=== PATIENT | female | born 1960 | race Caucasian/White ===

== ENCOUNTER 2017-02-26 17:49 | Inpatient (IN) | payer MEDICAID ==
[~2017-02-26] VITALS: Ht 144.8 cm; Wt 57.7 kg
[~2017-02-26 17:49] MED LIST: BEN25 PO; LEVO500T10 PO; NAPR-688 PO
[2017-02-26] MEDS ORDERED: KETOROLAC 60 MG INJ ONE (21:04)
[2017-02-26] MEDS ORDERED: ONDANSETRON 4 MG INJ IV STA (21:42)
[2017-02-26] MEDS ORDERED: morphine 10 MG INJ IV ONE (22:00)
--- NOTE | 2017-02-27 00:36 | RADRPT ---
PROCEDURE: Left femur. CLINICAL INDICATION: Pain. TECHNIQUE: 4 views of the left femur were performed. COMPARISON: None. FINDINGS: There are comminuted fractures of the distal femoral metadiaphysis with moderate impaction and dorsa l offset. There is no dislocation. The joint spaces are within normal limits. Bone mineralization is decrease. There is no radiopaque foreign body or abnormal calcification. IMPRESSION: Comminuted fractures of the distal femur. Osteopenia. .John Angulo MD, MD Date Time Electronically viewed and signed by .John Angulo MD, on 02/27/2017 00:36 .T/
--- NOTE | 2017-02-27 00:37 | RADRPT ---
PROCEDURE: Left hip. CLINICAL INDICATION: Pain. TECHNIQUE: Two views of the left hip were obtained. COMPARISON: None. FINDINGS: There is no fracture, dislocation or bone destruction. The joint spaces are within normal limits. Bone mineralization is decreased. There is no radiopaque foreign body or abnormal calcification. IMPRESSION: No evidence of fracture. Osteopenia. .John Angulo MD, MD Date Time Electronically viewed and signed by .John Angulo MD, on 02/27/2017 00:36 .T/
--- NOTE | 2017-02-27 00:37 | RADRPT ---
PROCEDURE: Left knee. CLINICAL INDICATION: Pain. TECHNIQUE: Three views including AP, lateral and oblique views of the left knee were obtained. T he images reviewed on a PACS workstation. COMPARISON: None. FINDINGS: There are comminuted fractures of the distal femoral metadiaphysis with moderate impaction and mild dorsal offset. There is no dislocation. There is no significant joint space narrowing. There is a small joint effusion. Bone mineralization is decrease. There is no radiopaque foreign body or abn ormal calcification. IMPRESSION: Comminuted fractures of the distal femur. Osteopenia. .John Angulo MD, Date Time Electronically viewed and signed by .John Angulo MD, MD on 02/27/2017 00:37 .T/
--- NOTE | 2017-02-27 00:44 | RADRPT ---
PROCEDURE: X-ray left tibia and fibula CLINICAL INDICATION: Fall. TECHNIQUE: 5 views of the left tibia and fibula. COMPARISON: None FINDINGS: Demineralization limits evaluation of fine osseous detail. Comminuted impacted fracture of the dist al left femoral metaphysis. Density over the lateral aspect of the distal left fibular metaphysis ma y represent overlying soft tissue fold versus small external to the patient. Recommend left ankle s eries for further evaluation. Otherwise, the left tibia and fibula are without acute fracture or di slocation. IMPRESSION: 1. Comminuted impacted fracture of the distal left femoral metaphysis. 2. Possible osseous abnormality at the lateral aspect of the distal left fibular metaphysis, subopt imally visualized. 3. Recommend left ankle series for further evaluation. 4. Otherwise, the left tibia and fibula are without acute fracture or dislocation. RPTAT: [facility] Physician Dang Date Time Electronically viewed and signed by Physician Dang on 02/27/2017 00:43 RS/
[2017-02-27 00:50] VITALS: TEMP 97.8
--- NOTE | 2017-02-27 01:22 | ERA ---
ER Documentation Chief Complaint Date/Time DATE: 02/27/17 TIME: 01:19 Chief Complaint Fall HPI This is a 57-year-old female presents to the ER after she fell onto her left extremity while coming back from the grocery store. Patient has a past medical history of polio and has a weak left leg. Patient was brought in with her family for severe lower extremity pain. Patient states that it is most painful around her knee. She denies any numbness or tingling of her leg. She did not hit her head. She denies any loss of consciousness. She does not have any nausea or vomiting. She denies any upper extremity pain. ROS 12 point review of systems was done, all negative except per HPI. Medications Home Meds Active Scripts Naproxen* (Naproxen*) 500 Mg Tablet, 500 MG PO BID Y for PAIN, #20 TAB Prov:MEGAN PARKSHUA DO 09/29/15 Levofloxacin* (Levofloxacin*) 500 Mg Tablet, 500 MG PO DAILY, #7 TAB Prov:GIAN PARK DO 09/29/15 Reported Medications Diphenhydramine Hcl* (Benadryl*) 25 Mg Cap, 25 MG PO Q6H Y for ALLERGIC REACTION , CAP 09/29/15 Allergies Allergies: Coded Allergies: No Known Allergy (Unverified , 09/29/15) PMhx/Soc History of Surgery: No Anesthesia Reaction: No Hx Neurological Disorder: No Hx Respiratory Disorders: No Hx Cardiac Disorders: No Hx Psychiatric Problems: No Hx Miscellaneous Medical Probl: No Hx Alcohol Use: No Hx Substance Use: No Hx Tobacco Use: No Physical Exam Vitals Vital Signs Date Time Temp Pulse Resp B/P Pulse Ox O2 Delivery O2 Flow Rate FiO2 02/27/17 00:50 97.8 80 16 112/68 96 Room Air Physical Exam GENERAL: Patient is in distress secondary to pain. HEENT: Atraumatic. CHEST: Clear to auscultation bilaterally. There are no rales, wheezes or rhonchi. HEART: Regular rate and rhythm. No murmurs, clicks, rubs or gallops. EXTREMITIES: Very difficult exam secondary to pain. Patient is unable to ambulate and is in a wheelchair. Extremely tender to palpation to the distal femur and knee. Unable to move knee. Unable to assess for hip range of motion. Tender to palpation throughout entire tibia and fibula. +2 pulses. Normal capillary refill. Incisions are intact. L4 L5-S1 are intact. NEURO: Alert and oriented. Cranial nerves II through XII are intact. SKIN: There is no apparent rash or petechia. The skin is warm and dry. Results 24 hrs Current Medications Medications (Trade) Dose Ordered Sig/Renetta Route PRN Reason Start Time Stop Time Status Last Admin Dose Admin Ketorolac Tromethamine (Toradol) 60 mg STK-MED ONCE .ROUTE 02/26/17 21:04 02/26/17 21:05 DC Morphine Sulfate (morphine) 6 mg ONCE ONCE IV 02/26/17 22:00 02/26/17 22:01 DC 02/26/17 22:01 Ondansetron HCl (Zofran Inj) 4 mg ONCE STAT IV 02/26/17 21:42 02/26/17 21:45 DC 02/26/17 22:01 Procedures/MDM This is a 57-year-old female presents to the ER after a fall. Patient does have a fracture of the femur. Patient is unstable to go home at this time as she is unable to ambulate. Dr. Cook orthopedic doctor on-call was consulted and he will be following patient. Patient will be admitted into the hospital for further management and care. Departure Diagnosis: Primary Impression: Femur fracture, left Condition: AKSHAT Tejada Feb 27, 2017 01:22
[2017-02-27 02:05] LABS: ADD SCAN DIFF NO
[2017-02-27 02:07] LABS: BASOPHILS % 0.6 % (0.0-2.0); EOSINOPHILS % 0.1 % (0.0-7.0); HEMATOCRIT 29.8 % (37.0-47.0); HEMOGLOBIN 10.3 g/dl (12.0-16.0); LYMPHOCYTES # 1.6 10^3/ul (0.8-2.9); LYMPHOCYTES % 23.4 % (15.0-51.0); MEAN CORPUSCULAR HEMOGLOBIN 33.8 pg (29.0-33.0); MEAN CORPUSCULAR HGB CONC 34.6 g/dl (32.0-37.0); MEAN CORPUSCULAR VOLUME 97.7 fl (82.0-101.0); MEAN PLATELET VOLUME 8.3 fl (7.4-10.4); MONOCYTE # 0.5 10^3/ul (0.3-0.9); MONOCYTES % 7.1 % (0.0-11.0); NEUTROPHIL # 4.6 10^3/ul (1.6-7.5); NEUTROPHILS % 68.4 % (39.0-77.0); PLATELET COUNT 233 10^3/UL (140-415); RED BLOOD COUNT 3.05 10^6/ul (4.20-5.40); RED CELL DISTRIBUTION WIDTH 13.2 % (11.5-14.5); WHITE BLOOD COUNT 6.8 10^3/ul (4.8-10.8)
--- NOTE | 2017-02-27 02:12 | RADRPT ---
PROCEDURE: Left ankle. CLINICAL INDICATION: Pain. TECHNIQUE: Three views including AP, lateral and oblique views of the left ankle were performed. COMPARISON: None. FINDINGS: There is no fracture, dislocation or bone destruction. The ankle mortise is within normal limits. Bone mineralization is decreased. There is no radiopaque foreign body or abnormal calcification. IMPRESSION: No evidence of fracture. Osteopenia. .John Angulo MD, MD Date Time Electronically viewed and signed by .John Angulo MD, on 02/27/2017 02:12 .T/
--- NOTE | 2017-02-27 02:13 | RADRPT ---
PROCEDURE: Chest. CLINICAL INDICATION: Chest pain. TECHNIQUE: Single frontal view of the chest was obtained. COMPARISON: 09/29/2015. FINDINGS: The cardiac silhouette is magnified. The aortic arch is unremarkable. There is no focal consolidat ion, vascular congestion or pleural effusion. There is no pneumothorax. IMPRESSION: No evidence for active cardiopulmonary disease. .John Angulo MD, MD Date Time Electronically viewed and signed by .John Angulo MD, on 02/27/2017 02:13 .T/
[2017-02-27 02:21] LABS: INR 0.92; PROTIME 12.4 Sec (12.2-14.2)
[2017-02-27 02:22] LABS: PARTIAL THROMBOPLASTIN TIME 33.2 Sec (25.0-35.0)
--- NOTE | 2017-02-27 02:38 | RADRPT ---
PROCEDURE: CT left femur. CLINICAL INDICATION: Fracture of the distal left femur. TECHNIQUE: Noncontrast CT examination of the left femur, with axial, sagittal and coronal reformat earnestine images. CTDI: 18.47 and DLP: 943.13. COMPARISON: Left knee series dated 02/26/2017. FINDINGS: Comminuted fracture of the distal metaphysis of the left femur, with about 26 mm posterior subluxati on of the distal comminuted fracture fragments and about 19 mm superior subluxation of the distal fr agment. There is a mild 3 cm overriding of the distal fragment at the lateral distal humeral diaphys is. Comminution is greater at the lateral distal fragment. The fracture is apex anterior. There is a nondisplaced intercondylar fracture component. The remaining proximal and mid left femur are without acute fracture. No evident fractures in the articular femoral condyles. No evident fracture of the patella, the proximal tibia or the proximal fibula. No significant hemarthrosis. Scattered inflammatory changes likely secondary to hemorrhage in the p osterior compartment of the distal left thigh. IMPRESSION: Comminuted overriding and angulated fracture of the distal metaphysis of the left femur. RPTAT: [facility] Physician Dang Date Time Electronically viewed and signed by Physician Dang on 02/27/2017 02:38 RS/
[2017-02-27 02:50] LABS: ALBUMIN 4.6 g/dl (3.3-4.9); ALBUMIN/GLOBULIN RATIO 1.84; BILIRUBIN,INDIRECT 0.1 mg/dl (0-1.1); BILIRUBIN,TOTAL 0.1 mg/dl (0.2-1.3); CALCIUM 8.5 mg/dl (8.4-10.2); CREATININE 0.55 mg/dl (0.44-1.00); POTASSIUM 3.7 mmol/L (3.5-5.1); TOTAL PROTEIN 7.1 g/dl (6.1-8.1)
[2017-02-27] MEDS ORDERED: ONDANSETRON 4 MG INJ IV STA (03:14)
[2017-02-27] MEDS ORDERED: HYDROmorphONE 1 MG/ML SYG IV STA (03:14)
[2017-02-27] MEDS ORDERED: ACETAMINOPHEN 325 MG TAB PO PRN (03:30)
[2017-02-27] MEDS ORDERED: ONDANSETRON 4 MG INJ IV PRN (03:30)
[2017-02-27 04:06] VITALS: BP 110/68; PULSE 78; RESP 16; Ht 144.8 cm; Wt 57.7 kg
[2017-02-27] MEDS ORDERED: HYDROmorphONE 1 MG/ML SYG IV PRN (05:00)
[2017-02-27] MEDS ORDERED: NACL 0.9% 3 ML SYG IV SCH (06:30)
[2017-02-27] MEDS ORDERED: BISACODYL (EC) 5 MG TAB PO PRN (06:30)
[2017-02-27] MEDS ORDERED: DOCUSATE SODIUM 100 MG CAP PO PRN (06:30)
[2017-02-27] MEDS: SOD CHLORIDE 0.9% 1,000 ML IV SCH ×2 (06:36→20:22)
[2017-02-27] MEDS: LORAZEPAM 2 MG INJ IV PRN ×2 (06:36→14:27)
[2017-02-27] MEDS: HYDROmorphONE 1 MG/ML SYG IV PRN ×5 (06:38→20:30)
--- NOTE | 2017-02-27 06:50 | HP ---
Date/Time of Note Date/Time of Note DATE: 02/27/17 TIME: 06:43 Assessment/Plan Lines/Catheters IV [facility]from [facility]): Saline Lock Urinary Cath still in place: No Assessment/Plan Chief Complaint/Hosp Course This is a 57 year female being admitted to the [facility] floor for: #1 left femur fracture: Multiple imaging studies were done please see imaging study results for further information. CT of the lower extremity shows Comminuted overriding and angulated fracture of the distal metaphysis of the left femur. At the current time will provide patient IV pain control medications. We will keep the patient n.p.o. Put patient on normal saline. Dr. Cook of orthopedic surgery was consulted by the ER. Will await further recommendations from orthopedic. Will put patient on bedrest. #2 alcohol abuse: Patient did smell of alcohol when she came in will order a ethyl alcohol level as well as a urine drug screen. At the current time will start patient on a banana bag. Ativan as needed agitation. Consider Librium depending on blood alcohol level level. #3 DVT and GI prophylaxis: Heparin subcu, Protonix Further treatment strategy will be implemented as per the clinical course. Problems: HPI/ROS Admit Date/Time Admit Date/Time Feb 27, 2017 at 03:10 Hx of Present Illness Chief complaint: Fall This is a 57-year-old female presents to the ER after she fell onto her left extremity while coming back from the grocery store. Patient has a past medical history of polio and has a weak left leg. Patient was brought in with her family for severe lower extremity pain. Patient states that it is most painful around her knee. She denies any numbness or tingling of her leg. She did not hit her head. She denies any loss of consciousness. She does not have any nausea or vomiting. She denies any upper extremity pain. Patient did state that she was drinking yesterday. She states she drinks about 2-3 beer cans a day. Allergies: NKDA Medications: See YAIMA BERNAL Const: As per HPI Eyes : No pain discharge or redness or change in visual acuity ENT: No pain, sore throat, congestion, congestion, dysphagia or discharge Respiratory: No shortness of breath, cough, sputum, wheezing, or pleuritic pain Cardiovascular: No chest pain, palpitation, PND, or edema GI : no change in appetite, abdominal pain, nausea, vomiting, diarrhea, constipation, or change in the color his stool Genitourinary: No dysuria, hematuria, flank pain , discharge or CVA tenderness Musculoskeletal: As per HPI Skin: No rash, bruising or hives Neuro: No headache, dizziness, syncope, seizure, focal weakness Endocrine: No polyuria, polydipsia, temperature intolerance Psych: No hallucination, depression, anxiety or suicidal ideation PMH/Family/Social Past Medical History Polio, left leg shorter than the right Past Surgical History 1 Family History Significant Family History: no pertinent family hx (Half pack per day 30 years ) Social History Alcohol Use: heavy (2-3 beers daily) Smoking Status: Current every day smoker Exam/Review of Systems Vital Signs Vitals Vital Signs Date Time Temp Pulse Resp B/P Pulse Ox O2 Delivery O2 Flow Rate FiO2 02/27/17 04:06 98.2 78 16 110/68 96 Room Air Intake and Output 02/26/17 02/26/17 02/27/17 15:00 23:00 07:00 Intake Total 0 ml Balance 0 ml Exam Exam General: Patient is lying in bed in moderate distress from the pain, patient also was breath smells like alcohol. HEENT: Atraumatic, normocephalic. The pupils are equal, round and reactive. Extraocular motor are intact Neck: Supple with full range of motion. No rigidity or meningismus Chest: Nontender Lungs: Clear to auscultation bilaterally no crackles rales or wheezing Heart: Normal S1-S2, Regular rhythm and rate. No murmur, S3, or S4 Abdomen: Soft , nontender, nondistended , bowel sounds are present. No guarding no rebound tenderness , No masses or organomegaly. No costovertebral temporal angle mass Extremities: Tenderness to palpation over the left extremity from the mid thigh down to the knee, left lower extremity is shorter than the right. Neurologic: Normal mental status, speech normal, cranial nerves II through XII are intact, motor and sensory are intact, no focal weakness Additional Comments PROCEDURE: Left ankle. CLINICAL INDICATION: Pain. TECHNIQUE: Three views including AP, lateral and oblique views of the left ankle were performed. COMPARISON: None. FINDINGS: There is no fracture, dislocation or bone destruction. The ankle mortise is within normal limits. Bone mineralization is decreased. There is no radiopaque foreign body or abnormal calcification. IMPRESSION: No evidence of fracture. Osteopenia. .John Angulo MD, MD Date Time Electronically viewed and signed by .John Angulo MD, MD on 02/27/2017 02:12 PROCEDURE: CT left femur. CLINICAL INDICATION: Fracture of the distal left femur. TECHNIQUE: Noncontrast CT examination of the left femur, with axial, sagittal and coronal reformatted images. CTDI: 18.47 and DLP: 943.13. COMPARISON: Left knee series dated 02/26/2017. FINDINGS: Comminuted fracture of the distal metaphysis of the left femur, with about 26 mm posterior subluxation of the distal comminuted fracture fragments and about 19 mm superior subluxation of the distal fragment. There is a mild 3 cm overriding of the distal fragment at the lateral distal humeral diaphysis. Comminution is greater at the lateral distal fragment. The fracture is apex anterior. There is a nondisplaced intercondylar fracture component. The remaining proximal and mid left femur are without acute fracture. No evident fractures in the articular femoral condyles. No evident fracture of the patella, the proximal tibia or the proximal fibula. No significant hemarthrosis. Scattered inflammatory changes likely secondary to hemorrhage in the posterior compartment of the distal left thigh. IMPRESSION: Comminuted overriding and angulated fracture of the distal metaphysis of the left femur. PROCEDURE: Chest. CLINICAL INDICATION: Chest pain. TECHNIQUE: Single frontal view of the chest was obtained. COMPARISON: 09/29/2015. FINDINGS: The cardiac silhouette is magnified. The aortic arch is unremarkable. There is no focal consolidation, vascular congestion or pleural effusion. There is no pneumothorax. IMPRESSION: No evidence for active cardiopulmonary disease. .John Angulo MD, MD Date Time Electronically viewed and signed by .John Angulo MD, MD on 02/27/2017 02:13 PROCEDURE: X-ray left tibia and fibula CLINICAL INDICATION: Fall. TECHNIQUE: 5 views of the left tibia and fibula. COMPARISON: None FINDINGS: Demineralization limits evaluation of fine osseous detail. Comminuted impacted fracture of the distal left femoral metaphysis. Density over the lateral aspect of the distal left fibular metaphysis may represent overlying soft tissue fold versus small external to the patient. Recommend left ankle series for further evaluation. Otherwise, the left tibia and fibula are without acute fracture or dislocation. IMPRESSION: 1. Comminuted impacted fracture of the distal left femoral metaphysis. 2. Possible osseous abnormality at the lateral aspect of the distal left fibular metaphysis, suboptimally visualized. 3. Recommend left ankle series for further evaluation. 4. Otherwise, the left tibia and fibula are without acute fracture or dislocation. RPTAT: [facility] Physician Dang Date Time Electronically viewed and signed by Physician Dang on 02/27/2017 00:43 Labs Result Diagram: 02/27/17 0145 02/27/17 0145 Medications Medications Current Medications Hydromorphone HCl (Dilaudid) 1 mg Q3 PRN IV PAIN; Start 02/27/17 at 09:00 Hydromorphone HCl 0.5 mg 0.5 mg Q3 PRN IV PAIN Last administered on 02/27/17 06:38; Admin Dose 0.5 MG; Start 02/27/17 at 06:30 Sodium Chloride (NS) 1,000 ml @ 60 mls/hr [id number] IV Last administered on 02/27 06:36; Admin Dose 60 MLS/HR; Start 02/27/17 at 06:11 Docusate Sodium (Colace) 100 mg Q12H PRN PO CONSTIPATION; Start 02/27/17 at 06: 30 Bisacodyl (Dulcolax) 5 mg DAILY PRN PO CONSTIPATION; Start 02/27/17 at 06:30 Pantoprazole 40 mg 40 mg DAILY@06 PO ; Start 02/28/17 at 06:00 Multivitamins/ Thiamine HCl/ Folic Acid/Sodium Chloride (Mvi Adult/ Vitamin B1/ Folic Acid/NS) 1,011.2 ml @ 125 mls/ hr DAILY@09 IVPB ; Start 02/27/17 at 09:00 Lorazepam (Ativan) 1 mg Q6H PRN IV AGITATION/ANXIETY Last administered on t 06:36; Admin Dose 1 MG; Start 02/27/17 at 06:30 EMILY BERMUDEZ Feb 27, 2017 06:50
[2017-02-27] MEDS ORDERED: HEPARIN 5,000 UNIT/0.5 ML VIAL SC SCH (07:00)
[2017-02-27 08:25] VITALS: BP 130/61; RESP 18
[2017-02-27 09:12] LABS: INR 0.91; PARTIAL THROMBOPLASTIN TIME 33.2 Sec (25.0-35.0); PROTIME 12.3 Sec (12.2-14.2)
[2017-02-27] MEDS: MULTIVITAMINS 10 ML, THIAMINE 100 MG, FOLIC ACID 1 MG in SOD CHLORIDE 0.9% 1,000 ML IVPB SCH (09:45)
[2017-02-27 10:28] LABS: ADD SCAN DIFF NO
[2017-02-27 10:29] LABS: BASOPHILS % 0.5 % (0.0-2.0); EOSINOPHILS % 0.5 % (0.0-7.0); HEMATOCRIT 28.6 % (37.0-47.0); HEMOGLOBIN 10.1 g/dl (12.0-16.0); LYMPHOCYTES # 1.4 10^3/ul (0.8-2.9); LYMPHOCYTES % 19.4 % (15.0-51.0); MEAN CORPUSCULAR HEMOGLOBIN 35.4 pg (29.0-33.0); MEAN CORPUSCULAR HGB CONC 35.3 g/dl (32.0-37.0); MEAN CORPUSCULAR VOLUME 100.4 fl (82.0-101.0); MEAN PLATELET VOLUME 8.6 fl (7.4-10.4); MONOCYTE # 0.8 10^3/ul (0.3-0.9); MONOCYTES % 10.2 % (0.0-11.0); NEUTROPHIL # 5.1 10^3/ul (1.6-7.5); PLATELET COUNT 268 10^3/UL (140-415); RED BLOOD COUNT 2.85 10^6/ul (4.20-5.40); RED CELL DISTRIBUTION WIDTH 13.2 % (11.5-14.5); WHITE BLOOD COUNT 7.3 10^3/ul (4.8-10.8)
[2017-02-27 12:01] LABS: BARBITURATES Negative (NEGATIVE); BENZODIAZEPINES Negative (NEGATIVE); CANNABINOIDS Negative (NEGATIVE); COCAINE Negative (NEGATIVE); OPIATES Positive (NEGATIVE)
[2017-02-27 13:42] LABS: ALANINE AMINOTRANSFERASE 59 IU/L (13-69); ALBUMIN 4.6 g/dl (3.3-4.9); ALBUMIN/GLOBULIN RATIO 1.58; ALKALINE PHOSPHATASE 84 IU/L (42-121); ANION GAP 16 (8-16); ASPARTATE AMINO TRANSFERASE 77 IU/L (15-46); BILIRUBIN,INDIRECT 0.7 mg/dl (0-1.1); BILIRUBIN,TOTAL 0.7 mg/dl (0.2-1.3); BLOOD UREA NITROGEN 9 mg/dl (7-20); CARBON DIOXIDE 25 mmol/L (21-31); CHLORIDE 99 mmol/L (97-110); CREATINE KINASE 126 IU/L (23-200); CREATININE 0.53 mg/dl (0.44-1.00); GLUCOSE 83 mg/dl (70-220); IRON 109 ug/dl (35-150); MAGNESIUM 1.9 mg/dl (1.7-2.5); PHOSPHORUS 3.9 mg/dl (2.5-4.9); POTASSIUM 4.7 mmol/L (3.5-5.1); SODIUM 135 mmol/L (135-144); TOTAL PROTEIN 7.5 g/dl (6.1-8.1)
--- NOTE | 2017-02-27 13:47 | CONS ---
DATE OF ADMISSION: 02/27/2017 DATE OF CONSULTATION: 02/27/2017 TYPE OF CONSULTATION: Orthopedic surgical. HISTORY OF PRESENT ILLNESS: The patient is a 57-year-old female with known involvement of the left lower extremity from poliomyelitis who was admitted on 02/27/2017 when she came to the emergency [facility] complaining of painful swelling and deformity involving the left knee. According to the patient, she used to be ambulatory without any assistive device, and on 02/26/2017, she was walking with a gr ocery bag on both hands when she stepped in a pothole and fell, twisting her left lower extremity. She is known to drink on a daily basis. PHYSICAL EXAMINATION: My examination revealed a 57-year-old female who is alert and oriented. She is not in any acute distress. There is tenderness and swelling involving the distal portion of the left thigh which she is smaller than the right because of the preexisting polio. Range of motion of the left knee could not be tested properly because of the pain. Other than preexisting polio, she is denying any further neurovascular condition changes. X-rays of the left femur revealed a severely comminuted and displaced fracture involving the supraco ndylar area of the left femur. The fracture is comminuted, and there is a possible involvement of t he distal articular surface. DIAGNOSTIC IMPRESSION: 1. Supracondylar fracture of the left femur at the left knee, displaced and comminuted. 2. Known poliomyelitis with the atrophy of the left lower extremity. TREATMENT PLAN: To carry out the open reduction and internal fixation, probably utilizing plate and screws as soon as she can be medically cleared for surgery. Dictated By: LAYNE BAL/BEATA Conf#: [id number] DID#: [id number]
[2017-02-27 13:51] LABS: TOTAL IRON BINDING CAPACITY 267 ug/dl (241-421)
[2017-02-27 13:54] LABS: CK-MB 1.63 ng/ml (0.0-2.4)
[2017-02-27 13:57] LABS: TROPONIN-I < 0.012 ng/ml (0.00-0.12)
[2017-02-27] MEDS: NICOTINE (14 MG/24 HR) PATCH TRANSDERM SCH (15:00)
[2017-02-27 19:30] VITALS: BP 150/72; RESP 20
[2017-02-27] MEDS: HEPARIN 5,000 UNIT/0.5 ML VIAL SC SCH (20:25)
[2017-02-28] MEDS: LORAZEPAM 2 MG INJ IV PRN ×2 (00:52→14:03)
[2017-02-28 05:09] LABS: ADD SCAN DIFF NO
[2017-02-28 05:24] LABS: BASOPHILS % 0.5 % (0.0-2.0); EOSINOPHILS # 0.1 10^3/ul (0.0-0.5); EOSINOPHILS % 1.5 % (0.0-7.0); HEMATOCRIT 27.3 % (37.0-47.0); HEMOGLOBIN 9.3 g/dl (12.0-16.0); LYMPHOCYTES # 1.4 10^3/ul (0.8-2.9); LYMPHOCYTES % 21.3 % (15.0-51.0); MEAN CORPUSCULAR HEMOGLOBIN 33.9 pg (29.0-33.0); MEAN CORPUSCULAR HGB CONC 34.1 g/dl (32.0-37.0); MEAN CORPUSCULAR VOLUME 99.6 fl (82.0-101.0); MEAN PLATELET VOLUME 8.7 fl (7.4-10.4); MONOCYTE # 0.8 10^3/ul (0.3-0.9); MONOCYTES % 11.5 % (0.0-11.0); NEUTROPHIL # 4.2 10^3/ul (1.6-7.5); NEUTROPHILS % 64.6 % (39.0-77.0); PLATELET COUNT 270 10^3/UL (140-415); RED BLOOD COUNT 2.74 10^6/ul (4.20-5.40); RED CELL DISTRIBUTION WIDTH 13.2 % (11.5-14.5); WHITE BLOOD COUNT 6.5 10^3/ul (4.8-10.8)
[2017-02-28 05:38] LABS: CHOL/HDL RATIO 2.7 RATIO; MAGNESIUM 1.7 mg/dl (1.7-2.5)
[2017-02-28 05:53] LABS: ALBUMIN 4.3 g/dl (3.3-4.9); ALBUMIN/GLOBULIN RATIO 1.59; BILIRUBIN,INDIRECT 0.5 mg/dl (0-1.1); BILIRUBIN,TOTAL 0.5 mg/dl (0.2-1.3); CALCIUM 8.9 mg/dl (8.4-10.2); CREATININE 0.41 mg/dl (0.44-1.00); POTASSIUM 3.9 mmol/L (3.5-5.1)
[2017-02-28] MEDS: PANTOPRAZOLE (EC) 40 MG TAB PO SCH (06:07)
[2017-02-28] MEDS: HYDROmorphONE 1 MG/ML SYG IV PRN ×3 (06:07→18:26)
[2017-02-28] MEDS: MULTIVITAMINS 10 ML, THIAMINE 100 MG, FOLIC ACID 1 MG in SOD CHLORIDE 0.9% 1,000 ML IVPB SCH (08:17)
[2017-02-28] MEDS: HEPARIN 5,000 UNIT/0.5 ML VIAL SC SCH (08:25)
[2017-02-28] MEDS: NICOTINE (14 MG/24 HR) PATCH TRANSDERM SCH (08:25)
[2017-02-28 08:42] VITALS: BP 140/70; RESP 18
[2017-02-28 09:09] LABS: ADD UMIC YES; UR BILIRUBIN (Dip) NEGATIVE (NEGATIVE); UR BLOOD (Dip) 1+ (NEGATIVE); UR CLARITY CLEAR (CLEAR); UR COLOR LT. YELLOW (YELLOW); UR GLUCOSE (Dip) NEGATIVE (NEGATIVE); UR KETONES (Dip) TRACE (NEGATIVE); UR LEUKOCYTE ESTERASE (Dip) NEGATIVE (NEGATIVE); UR NITRITE (Dip) NEGATIVE (NEGATIVE); UR TOTAL PROTEIN (Dip) TRACE (NEGATIVE); UR UROBILINOGEN (Dip) 0.2 E.U./dL (0.1-1.0)
[2017-02-28 09:20] LABS: UR BACTERIA FEW; UR SQUAMOUS EPITHELIAL CELL FEW
--- NOTE | 2017-02-28 09:55 | PN ---
DATE: 02/28/2017 TIME OF EVALUATION: 9:15 a.m. SUBJECTIVE DATA: Complains of left hip pain. OBJECTIVE DATA: VITAL SIGNS: Temperature 98.3, pulse rate 91, respiratory rate 18, blood pressure 140/70, oxygen saturation 94% on room air. GENERAL: This is a 57-year-old female patient lying in bed in no apparent distress. HEENT: Head normocephalic and atraumatic. Eyes: Anicteric sclerae. Conjunctivae clear. ENT: Nasal septum is midline. Oral mucosa is moist. NECK: Supple. No JVD noticed. RESPIRATORY: Bilaterally clear to auscultation. No adventitious breath sounds heard. No use of accessory muscles of respiration. CARDIAC: Regular rate and rhythm. S1 and S2 heard. ABDOMEN: Soft, nontender and nondistended. Bowel sounds positive in all 4 quadrants. GENITOURINARY: Deferred. EXTREMITIES: No cyanosis, no clubbing. Left lower extremity shorter than right. Left hip tenderness. No pedal edema. Peripheral pulses palpable. NEUROLOGIC: The patient is awake, alert and oriented. Cranial nerves are grossly intact. LABORATORY AND DIAGNOSTIC DATA: WBC 6.5, hemoglobin 9.3, hematocrit 27.3, platelet count 270. Sodium 131, potassium 3.9, chloride 98, carbon dioxide 20, anion gap 12, BUN 6, creatinine 0.41, glucose 70, calcium 8.9, phosphorus 3.0, magnesium 1.7. ASSESSMENT AND PLAN: 1. Comminuted overriding and angulated fracture of the distal metaphysis of the left femur. This is secondary to mechanical fall. The patient needs open reduction and internal fixation. The patient will be provided with adequate pain control. Orthopedic surgery is on the case. 2. Anemia. Most probably anemia of chronic disease. No evidence of any iron deficiency. The patient's H and H will be monitored closely. 3. Dyslipidemia. Elevated total cholesterol. Low cholesterol diet will be advised. 4. Vitamin D deficiency. The patient will be started on vitamin D supplements. 5. Poliomyelitis as a child with chronic left lower extremity weakness. The patient will be provided with supportive care. 6. Nicotine use. The patient currently on nicotine patch. Cessation will be advised. 7. Alcohol abuse. The patient denied using any hard liquor. The patient's urine drug screen has been negative. The patient on p.r.n. Ativan for any acute alcohol withdrawal delirium. The patient on daily banana bag. 8. Fluid, electrolytes and nutrition. Low cholesterol diet. 9. Deep vein thrombosis prophylaxis. Subcutaneous heparin. 10. Gastrointestinal prophylaxis. Proton pump inhibitors. PLAN: 1. Await orthopedic surgery evaluation. Continue pain control. Perioperative risk stratification. The patient is a 57-year-old female with no significant past medical history other than poliomyelitis as a child. The patient has no known coronary artery disease. The patient has no essential hypertension or diabetes. The patient has minimal dyslipidemia. The patient has no significant comorbidities other than minimal dyslipidemia and history of alcohol abuse. Given these comorbidities, the patient is at mild to moderate risk for any orthopedic surgery for management of her left hip fracture. Nevertheless, the benefits of the procedure would outweigh the risks from the procedure and the patient is cleared for surgery. The case was discussed with Dr. Crabtree. TORRIE CRABTREE MD, AM/BEATA Conf#: [id number] DID#: [id number] JABIER
[2017-02-28] MEDS: CHOLECALCIFEROL 2,000 UNIT CAP PO SCH (10:00)
[2017-02-28] MEDS ORDERED: LORAZEPAM 1 MG TAB PO PRN (16:30)
[2017-02-28] MEDS: SOD CHLORIDE 0.9% 1,000 ML IV SCH (16:32)
[2017-02-28 19:22] VITALS: BP 151/77; RESP 18
[2017-03-01] VITALS (19 sets, daily range): BP systolic 110–162; BP diastolic 55–82; PULSE 72–124; RESP 13–30
[2017-03-01] MEDS: PANTOPRAZOLE (EC) 40 MG TAB PO SCH (03:45)
[2017-03-01] MEDS: HYDROmorphONE 1 MG/ML SYG IV PRN (04:51)
[2017-03-01 06:04] LABS: ADD SCAN DIFF NO; BASOPHILS % 0.4 % (0.0-2.0); EOSINOPHILS # 0.1 10^3/ul (0.0-0.5); EOSINOPHILS % 1.6 % (0.0-7.0); HEMATOCRIT 32.4 % (37.0-47.0); HEMOGLOBIN 11.4 g/dl (12.0-16.0); LYMPHOCYTES # 2.1 10^3/ul (0.8-2.9); LYMPHOCYTES % 28.1 % (15.0-51.0); MEAN CORPUSCULAR HEMOGLOBIN 33.8 pg (29.0-33.0); MEAN CORPUSCULAR HGB CONC 35.2 g/dl (32.0-37.0); MEAN CORPUSCULAR VOLUME 96.1 fl (82.0-101.0); MEAN PLATELET VOLUME 8.9 fl (7.4-10.4); MONOCYTE # 0.8 10^3/ul (0.3-0.9); MONOCYTES % 10.7 % (0.0-11.0); NEUTROPHIL # 4.4 10^3/ul (1.6-7.5); NEUTROPHILS % 58.9 % (39.0-77.0); PLATELET COUNT 284 10^3/UL (140-415); RED BLOOD COUNT 3.37 10^6/ul (4.20-5.40); RED CELL DISTRIBUTION WIDTH 13.6 % (11.5-14.5); WHITE BLOOD COUNT 7.4 10^3/ul (4.8-10.8)
[2017-03-01 06:14] LABS: INR 0.88; PROTIME 11.9 Sec (12.2-14.2); PT RATIO 0.9
[2017-03-01 06:15] LABS: PARTIAL THROMBOPLASTIN TIME 34.8 Sec (25.0-35.0)
[2017-03-01 06:18] LABS: MAGNESIUM 1.7 mg/dl (1.7-2.5); PHOSPHORUS 2.5 mg/dl (2.5-4.9)
[2017-03-01 06:28] LABS: CALCIUM 9.2 mg/dl (8.4-10.2); CREATININE 0.5 mg/dl (0.44-1.00); POTASSIUM 3.6 mmol/L (3.5-5.1)
[2017-03-01] MEDS: SOD CHLORIDE 0.9% 1,000 ML IV SCH ×2 (08:11→22:21)
[2017-03-01] MEDS: CHOLECALCIFEROL 2,000 UNIT CAP PO SCH (08:58)
[2017-03-01] MEDS: MULTIVITAMINS 10 ML, THIAMINE 100 MG, FOLIC ACID 1 MG in SOD CHLORIDE 0.9% 1,000 ML IVPB SCH (08:59)
[2017-03-01] MEDS: NICOTINE (14 MG/24 HR) PATCH TRANSDERM SCH (08:59)
[2017-03-01] MEDS ORDERED: MAGNESIUM SULFATE 2 GM/50 ML 50 ML IVPB ONE (13:00)
--- NOTE | 2017-03-01 13:56 | PN ---
Date/Time of Note Date/Time of Note DATE: 03/01/17 TIME: 13:52 Assessment/Plan VTE Prophylaxis VTE Prophylaxis Intervention: heparin Lines/Catheters IV C[facility] Type ([facility] Peripheral IV Urinary Cath still in place: No Assessment/Plan Assessment/Plan 1. Comminuted overriding and angulated fracture of the distal metaphysis of the left femur. This is secondary to mechanical fall. The patient needs open reduction and internal fixation. The patient will be provided with adequate pain control. surgery - today - medically cleared - mild/moderate risk 2. Anemia. Most probably anemia of chronic disease. No evidence of any iron deficiency. The patient's H and H will be monitored closely. transfuse at discretion of ortho 3. Dyslipidemia. Elevated total cholesterol. Low cholesterol diet will be advised. 4. Vitamin D deficiency. The patient will be started on vitamin D supplements. 5. Poliomyelitis as a child with chronic left lower extremity weakness. The patient will be provided with supportive care. 6. Nicotine use. The patient currently on nicotine patch. Cessation will be advised. 7. Alcohol abuse. denies any current use of ETOH - still on DT prevention - ativan/banana bag 8. Fluid, electrolytes and nutrition. npo for surgery 9. Deep vein thrombosis prophylaxis. Subcutaneous heparin. 10. Gastrointestinal prophylaxis. Proton pump inhibitors. PLAN: 1. Surgery today - patient is medically cleared - mild to moderate risk 2. f/u ortho recs as per clinical course. this progress note took greater than 40 minutes to complete Perioperative risk stratification. The patient is a 57-year-old female with no significant past medical history other than poliomyelitis as a child. The patient has no known coronary artery disease. The patient has no essential hypertension or diabetes. The patient has minimal dyslipidemia. The patient has no significant comorbidities other than minimal dyslipidemia and history of alcohol abuse. Given these comorbidities, the patient is at mild to moderate risk for any orthopedic surgery for management of her left hip fracture. Nevertheless, the benefits of the procedure would outweigh the risks from the procedure and the patient is cleared for surgery. Subjective 24 Hr Interval Summary Free Text/Dictation Patient had no overnight events. I spoke to her at length about the surgery and the risks/benefits of going along with this procedure. She agrees to continue with the procedure. I also spoke to her about the care plan. 20 minutes spent. Exam/Review of Systems Vital Signs Vitals Vital Signs Date Time Temp Pulse Resp B/P Pulse Ox O2 Delivery O2 Flow Rate FiO2 03/01/17 08:35 98.3 78 18 139/81 97 02/27/17 04:06 Room Air Intake and Output 02/28/17 02/28/17 03/01/17 15:00 23:00 07:00 Intake Total 2301.2 ml 150 ml Output Total 850 ml 1100 ml Balance 1451.2 ml -950 ml Exam Gen Iris: NAD, AAOx4 HEENT: NC/AT, PERRLA, EOMI, no pharyngeal erythema, no tonsillar exudates, no lymphadenopathy, no JVD, no carotid bruits NECK: supple, no thyromegaly THORAX: symmetrical, no obvious deformities CV: S1S2, RRR, no M/G/R Lungs: CTAB no W/C/R/R Abd: soft, NT/ND, +BS, no rebound, no guarding, neg HSM EXT: left leg truncated, externally rotated, increased edema around thigh area, right no edema, good distal pulses bilaterally Neuro: CN II-XII grossly intact, no focal deficits Psych: anxious Skin: C/D/I Results Result Diagram: 03/01/17 0455 03/01/17 0455 Results 24 hrs Laboratory Tests Test 03/01/17 04:00 03/01/17 04:55 03/01/17 06:30 Prothrombin Time 11.9 L Prothrombin Time Ratio 0.9 INR International Normalized Ratio 0.88 Activated Partial Thromboplast Time 34.8 White Blood Count 7.4 Red Blood Count 3.37 #L Hemoglobin 11.4 #L Hematocrit 32.4 L Mean Corpuscular Volume 96.1 Mean Corpuscular Hemoglobin 33.8 H Mean Corpuscular Hemoglobin Concent 35.2 Red Cell Distribution Width 13.6 Platelet Count 284 Mean Platelet Volume 8.9 Neutrophils % 58.9 Lymphocytes % 28.1 Monocytes % 10.7 Eosinophils % 1.6 Basophils % 0.4 Nucleated Red Blood Cells % 0.0 Neutrophils # 4.4 Lymphocytes # 2.1 Monocytes # 0.8 Eosinophils # 0.1 Basophils # 0.0 Nucleated Red Blood Cells # 0.0 Sodium Level 130 L Potassium Level 3.6 Chloride Level 94 L Carbon Dioxide Level 29 Anion Gap 11 Blood Urea Nitrogen 4 L Creatinine 0.50 Glucose Level 96 Calcium Level 9.2 Phosphorus Level 2.5 Magnesium Level 1.7 Lab Scanned Report BLOOD TRANSFUSION Medications Medications Current Medications Hydromorphone HCl (Dilaudid) 1 mg Q3 PRN IV PAIN Last administered on 04:51; Admin Dose 1 MG; Start 02/27/17 at 09:00 Hydromorphone HCl 0.5 mg 0.5 mg Q3 PRN IV PAIN Last administered on 02/27/17 20:30; Admin Dose 0.5 MG; Start 02/27/17 at 06:30 Sodium Chloride (NS) 1,000 ml @ 60 mls/hr [id number] IV Last administered on 02/28 16:32; Admin Dose 60 MLS/HR; Start 02/27/17 at 06:11 Docusate Sodium (Colace) 100 mg Q12H PRN PO CONSTIPATION; Start 02/27/17 at 06: 30 Bisacodyl (Dulcolax) 5 mg DAILY PRN PO CONSTIPATION; Start 02/27/17 at 06:30 Pantoprazole 40 mg 40 mg DAILY@06 PO Last administered on 02/28/17 06:07; Admin Dose 40 MG; Start 02/28/17 at 06:00 Multivitamins/ Thiamine HCl/ Folic Acid/Sodium Chloride (Mvi Adult/ Vitamin B1/ Folic Acid/NS) 1,011.2 ml @ 125 mls/ hr DAILY@09 IVPB Last administered on 08:59; Admin Dose 125 MLS/HR; Start 02/27/17 at 09:00 Heparin Sodium (Porcine) (Heparin (5000 Units/0.5 ml)) 5,000 unit Q12 SC Last administered on 02/28/17 08:25; Admin Dose 5,000 UNIT; Start 02/27/17 at 21:00 ; Status Future Hold Nicotine (Nicoderm 14 Mg/ 24hr) 1 patch DAILY TRANSDERM Last administered on 08:59; Admin Dose 1 PATCH; Start 02/27/17 at 15:00 Cholecalciferol (Vitamin D) 2,000 unit DAILY PO Last administered on 02/28/17 10:00; Admin Dose 2,000 UNIT; Start 02/28/17 at 09:30 Lorazepam 1 mg 1 mg Q6H PRN PO AGITATION/ANXIETY Last administered on 6/20/ 17at 01:15; Admin Dose 1 MG; Start 02/28/17 at 16:30 Magnesium Sulfate (Magnesium Sulfate 2 Gm/50 ml) 50 ml @ 25 mls/hr ONCE ONCE IVPB ; Start 03/01/17 at 13:00; Stop 03/01/17 at 14:59 JUDY AGEE MD Mar 01, 2017 13:56
--- NOTE | 2017-03-01 14:00 | RADRPT ---
Vent Rate: 78 bpm RR Interval: 0 msec SD Interval: 166 msec QRS Duration: 90 msec QT Interval: 390 msec QTC Interval: 444 msec P-R-T [place]: 73 - 75 - 78 degrees Normal sinus rhythm Nonspecific ST abnormality Abnormal ECG Electronically Signed By: Cleveland Thompson [id number]
[2017-03-01] MEDS ORDERED: POLYMYXIN/BACITRACIN 1L IRRIG ONE (17:31)
--- NOTE | 2017-03-01 17:34 | HPN ---
Date/Time of Note Date/Time of Note DATE: 03/01/17 TIME: 17:33 Interval H&P Admission Note Pt. seen H&P reviewed: No system changes RUBI LIANG MD Mar 01, 2017 17:34
[2017-03-01] MEDS ORDERED: FENTAnyl 50 MCG/ML VIAL ONE (17:46)
[2017-03-01] MEDS ORDERED: ONDANSETRON 4 MG INJ ONE (17:46)
[2017-03-01] MEDS ORDERED: morphine SULFATE/PF (10 MG/10 ML) INJ ONE (17:46)
[2017-03-01] MEDS ORDERED: CEFAZOLIN 1 GM INJ ONE (17:46)
[2017-03-01] MEDS ORDERED: NEOSTIGMINE 3 MG/3 ML SYRINGE ONE (17:46)
[2017-03-01] MEDS ORDERED: MIDAZOLAM 1 MG/ML 2 ML INJ ONE (17:46)
[2017-03-01] MEDS ORDERED: GLYCOPYRROLATE 0.4 MG INJ ONE (17:46)
[2017-03-01] MEDS ORDERED: ROCURONIUM 50 MG INJ ONE (17:46)
[2017-03-01] MEDS ORDERED: DEXAMETHASONE 4 MG/ML 1 ML INJ ONE (17:46)
[2017-03-01] MEDS ORDERED: PROPOFOL 20 ML ONE (17:46)
[2017-03-01] MEDS ORDERED: EPHEDrine SULFATE 50 MG/5 ML SYG IV PRN ×2 (19:00→21:00)
[2017-03-01] MEDS ORDERED: MEPERIDINE 25 MG INJ IV PRN ×2 (19:00→21:00)
[2017-03-01] MEDS ORDERED: FENTAnyl 50 MCG/ML VIAL IV PRN ×6 (19:00→21:00)
[2017-03-01] MEDS ORDERED: TRIMETHOBENZAMIDE 100 MG/ML VIAL IM PRN ×3 (19:00→21:00)
[2017-03-01] MEDS ORDERED: HYDROmorphONE (0.2 MG/ML) 10ML SYG IV PRN ×6 (19:00→21:00)
[2017-03-01] MEDS ORDERED: ONDANSETRON 4 MG INJ IV PRN ×3 (19:00→21:00)
[2017-03-01] MEDS ORDERED: MIDAZOLAM 1 MG/ML 2 ML INJ IV PRN ×2 (19:00→21:00)
[2017-03-01] MEDS ORDERED: LABETALOL HCL 20MG INJ IV PRN ×2 (19:00→21:00)
[2017-03-01] MEDS ORDERED: DIPHENHYDRAMINE 50 MG INJ IV PRN ×3 (19:00→21:00)
[2017-03-01] MEDS ORDERED: hydrALAzine 20 MG INJ IV PRN ×2 (19:00→21:00)
[2017-03-01] MEDS ORDERED: OXYCODONE/ACETAMINOPHEN (5/325) TAB PO PRN ×4 (19:00→21:00)
[2017-03-01] MEDS ORDERED: NACL 0.9% 3 ML SYG IV SCH (20:30)
[2017-03-01] MEDS ORDERED: morphine 2 MG INJ IV PRN (20:30)
--- NOTE | 2017-03-01 20:42 | OPR ---
DATE OF OPERATION: 03/01/2017 PREOPERATIVE DIAGNOSIS: Supracondylar and intercondylar fracture involving the distal femur at the left knee. POSTOPERATIVE DIAGNOSIS: Supracondylar and intercondylar fracture involving the distal femur at the left knee. ANESTHESIA: General anesthesia. SURGEON: Layne Liang MD OPERATION PERFORMED: Open reduction and internal fixation of the intercondylar and supracondylar fr acture of the distal femur at the left knee. PROCEDURE: Under general anesthesia, the patient was placed in supine position upon the operating t able. Usual prep and drape was done exposing the left knee and left lower extremity. A tourniquet was placed over the proximal portion of the left thigh and was inflated up to 300 mmHg prior to the procedure. The distal femur was approached through the lateral longitudinal incision. By blunt and sharp disse ction, the distal femur was exposed. Exploration at this time revealed that there indeed was a comm inuted fracture involving the supracondylar area of the left femur. In addition, there is an obviou s intraarticular extension of the fracture in between the lateral and medial femoral condyle. With some difficulties, the fracture was reduced and was held reduced with K-wires and special clamp and then this was internally fixed using periarticular plate for the distal femur. At the end of the pr ocedure, the alignment of the fracture is entirely satisfactory and the position of the fixation dev ice was proper. After irrigation and hemostasis, closure of the incision was carried out using 0 Vi cryl for muscle and fascia and 2-0 Vicryl for subcutaneous tissues. Final skin closure was carried out with skin kenneth. Usual sterile pressure dressings were applied. The patient tolerated the entire procedure very well and was sent to the recovery room in excellent condition. Dictated By: LAYNE LIANG MD IK/NTS Conf#: [id number] DID#: [id number] CC: EMILY BERMUDEZ MD;*EndCC*
[2017-03-01 20:53] LABS: ADD SCAN DIFF NO
[2017-03-01 20:55] LABS: BASOPHILS % 0.4 % (0.0-2.0); EOSINOPHILS % 0.4 % (0.0-7.0); HEMATOCRIT 29.7 % (37.0-47.0); HEMOGLOBIN 10.4 g/dl (12.0-16.0); LYMPHOCYTES # 0.9 10^3/ul (0.8-2.9); LYMPHOCYTES % 11.2 % (15.0-51.0); MEAN CORPUSCULAR HEMOGLOBIN 34.3 pg (29.0-33.0); MEAN PLATELET VOLUME 8.5 fl (7.4-10.4); MONOCYTE # 0.3 10^3/ul (0.3-0.9); MONOCYTES % 3.3 % (0.0-11.0); NEUTROPHIL # 6.9 10^3/ul (1.6-7.5); NEUTROPHILS % 84.2 % (39.0-77.0); PLATELET COUNT 273 10^3/UL (140-415); RED BLOOD COUNT 3.03 10^6/ul (4.20-5.40); RED CELL DISTRIBUTION WIDTH 14.2 % (11.5-14.5); WHITE BLOOD COUNT 8.1 10^3/ul (4.8-10.8)
[2017-03-01] MEDS ORDERED: HYDROmorphONE 1 MG/ML SYG IV PRN ×2 (21:00)
[2017-03-01] MEDS ORDERED: KETOROLAC 30 MG INJ IV PRN (21:00)
[2017-03-01] MEDS ORDERED: NALBUPHINE HCL (10 MG/1 ML) INJ IV PRN (21:00)
[2017-03-01] MEDS ORDERED: NALOXONE (0.4 MG/ML) INJ IV PRN (21:00)
[2017-03-01] MEDS ORDERED: ZOLPIDEM 5 MG TAB PO PRN (21:00)
--- NOTE | 2017-03-01 22:12 | RADRPT ---
PROCEDURE: XR Left Knee. CLINICAL INDICATION: Postoperative. TECHNIQUE: Two views of the left knee are available for review. COMPARISON: 02/27/2017 FINDINGS: There are skin kenneth overlying the metal side plate with multiple transcortical screws transfixing comminuted fractures of the distal femoral metaphysis. There is improved alignment of the fracture fragments. There is slight dorsal displacement of the distal fracture fragments. Ankle mortise is maintained. Bone mineralization is within normal limits. IMPRESSION: s/p ORIF of a previously described comminuted fracture distal femoral metaphysis with improved align ment. RPTAT: HMVK .Cleveland Cleary MD, Date Time Electronically viewed and signed by .Cleveland Cleary MD, MD on 03/01/2017 22:12 .K/
[2017-03-01] MEDS: CEFAZOLIN 1 GM/50 ML (PMX) 50 ML IVPB SCH (22:20)
[2017-03-02 00:45] VITALS: BP 133/75; PULSE 75; RESP 18
[2017-03-02 01:45] VITALS: BP 134/75; PULSE 74; RESP 18
[2017-03-02 05:01] VITALS: BP 138/76; PULSE 86; RESP 18
[2017-03-02] MEDS: CEFAZOLIN 1 GM/50 ML (PMX) 50 ML IVPB SCH ×2 (05:16→12:08)
[2017-03-02] MEDS: PANTOPRAZOLE (EC) 40 MG TAB PO SCH (05:16)
[2017-03-02] MEDS: SOD CHLORIDE 0.9% 1,000 ML IV SCH (06:07)
[2017-03-02 07:29] VITALS: BP 146/69; RESP 18
[2017-03-02] MEDS: MULTIVITAMINS 10 ML, THIAMINE 100 MG, FOLIC ACID 1 MG in SOD CHLORIDE 0.9% 1,000 ML IVPB SCH (09:05)
[2017-03-02] MEDS: CHOLECALCIFEROL 2,000 UNIT CAP PO SCH (09:05)
[2017-03-02] MEDS: NICOTINE (14 MG/24 HR) PATCH TRANSDERM SCH (09:06)
[2017-03-02] MEDS: HYDROCODONE/APAP (5/325) TAB PO PRN ×4 (09:06→22:52)
--- NOTE | 2017-03-02 09:06 | RADRPT ---
PROCEDURE: X-ray fluoroscopy guidance CLINICAL INDICATION: Left knee fracture fixation, fluoroscopic guidance. TECHNIQUE: Fluoroscopic guidance was utilized for an intraoperative procedure. COMPARISON: None available FINDINGS: Fluoroscopic guidance was utilized for and intraoperative procedure. 92 seconds of fluoroscopy time was utilized for the procedure. 21 x-ray images were obtained during the procedure in progress. Mariam l images demonstrate fracture fragments in near anatomic alignment. IMPRESSION: X-ray fluoroscopic guidance utilized for intraoperative procedure. Fracture fragments in near anatomic alignment. Please see procedure note for details. RPTAT: AA .Butch Currie MD, Date Time Electronically viewed and signed by .Butch Currie MD, on 03/02/2017 09:05 .P/
[2017-03-02] MEDS: ENOXAPARIN 40 MG/0.4 ML SYG SC SCH (09:12)
[2017-03-02] MEDS ORDERED: HYDROmorphONE 1 MG/ML SYG IV PRN (10:15)
--- NOTE | 2017-03-02 10:21 | PN ---
Date/Time of Note Date/Time of Note DATE: 03/02/17 TIME: 10:20 Assessment/Plan VTE Prophylaxis VTE Prophylaxis Intervention: SCD's Lines/Catheters IV Catheter Type (from Nrsg): Peripheral IV Urinary Cath still in place: Yes (INSERTED IN OR) Reason Cath still needed: other (indicate) (dc now) Assessment/Plan Assessment/Plan 57 yo F admitted for L femur fracture following mechanical fall fracture of the distal metaphysis of the left femur. sp ORIF 03.01 also h/o poliomyelitis as a child with chronic left lower extremity weakness -cont pain control Hyponatremia: etio unclear. check urine and serum osms, am cortisol, urine sodium. TSH ok NO FREE WATER Anemia: ?chronic disease iron studies nl. MCV nl. f/u with PCP high cholesterol: f/u with PCP tob abuse: NRT prohx: DVT prophx as per ortho PLAN: PT and discharge planning Subjective 24 Hr Interval Summary Free Text/Dictation Pain control adequate. Doesn't want to go to a facility for physical rehab Exam/Review of Systems Vital Signs Vitals Vital Signs Date Time Temp Pulse Resp B/P Pulse Ox O2 Delivery O2 Flow Rate FiO2 03/02/17 07:29 99.3 73 18 146/69 97 03/02/17 05:01 Room Air 03/01/17 20:33 2.0 Intake and Output 03/01/17 03/01/17 03/02/17 15:00 23:00 07:00 Intake Total 250 ml 3550 ml 1020 ml Output Total 1620 ml 950 ml Balance 250 ml 1930 ml 70 ml Exam nad, responds go questions appropriately no mrg lungs clear abd soft no rashes surgical dressings over LLE c/d/i Results Result Diagram: 03/01/17204403/01/175 Results 24 hrs Laboratory Tests Test 03/01/17 20:45 White Blood Count 8.1 Red Blood Count 3.03 L Hemoglobin 10.4 L Hematocrit 29.7 L Mean Corpuscular Volume 98.0 Mean Corpuscular Hemoglobin 34.3 H Mean Corpuscular Hemoglobin Concent 35.0 Red Cell Distribution Width 14.2 Platelet Count 273 Mean Platelet Volume 8.5 Neutrophils % 84.2 H Lymphocytes % 11.2 L Monocytes % 3.3 Eosinophils % 0.4 Basophils % 0.4 Nucleated Red Blood Cells % 0.0 Neutrophils # 6.9 Lymphocytes # 0.9 Monocytes # 0.3 Eosinophils # 0.0 Basophils # 0.0 Nucleated Red Blood Cells # 0.0 Medications Medications Current Medications Docusate Sodium (Colace) 100 mg Q12H PRN PO CONSTIPATION; Start 02/27/17 at 06: 30 Bisacodyl (Dulcolax) 5 mg DAILY PRN PO CONSTIPATION; Start 02/27/17 at 06:30 Pantoprazole 40 mg 40 mg DAILY@06 PO Last administered on 03/02/17 05:16; Admin Dose 40 MG; Start 02/28/17 at 06:00 Multivitamins/ Thiamine HCl/ Folic Acid/Sodium Chloride (Mvi Adult/ Vitamin B1/ Folic Acid/NS) 1,011.2 ml @ 125 mls/ hr DAILY@09 IVPB Last administered on 09:05; Admin Dose 125 MLS/HR; Start 02/27/17 at 09:00 Heparin Sodium (Porcine) (Heparin (5000 Units/0.5 ml)) 5,000 unit Q12 SC Last administered on 02/28/17 08:25; Admin Dose 5,000 UNIT; Start 02/27/17 at 21:00 ; Status Future Hold Nicotine (Nicoderm 14 Mg/ 24hr) 1 patch DAILY TRANSDERM Last administered on 09:06; Admin Dose 1 PATCH; Start 02/27/17 at 15:00 Cholecalciferol (Vitamin D) 2,000 unit DAILY PO Last administered on 03/02/17 09:05; Admin Dose 2,000 UNIT; Start 02/28/17 at 09:30 Lorazepam 1 mg 1 mg Q6H PRN PO AGITATION/ANXIETY Last administered on 01:15; Admin Dose 1 MG; Start 02/28/17 at 16:30 Cefazolin Sodium 50 ml @ 100 mls/hr Q8H IVPB Last administered on 03/02/17 05 :16; Admin Dose 100 MLS/HR; Start 03/01/17 at 20:30; Stop 03/02/17 at 12:59 Sodium Chloride (NS) 1,000 ml @ 100 mls/hr Q10H IV Last administered on 22:21; Admin Dose 100 MLS/HR; Start 03/01/17 at 20:07 Enoxaparin Sodium (Lovenox) 40 mg DAILY SC Last administered on 03/02/17 09:12 ; Admin Dose 40 MG; Start 03/02/17 at 09:00 Acetaminophen/ Hydrocodone Bitart ([place] (5/325)) 1 tab Q3H PRN PO PAIN Last administered on 03/02/17 09:06; Admin Dose 1 TAB; Start 03/01/17 at 20:30 Ketorolac Tromethamine (Toradol) 30 mg Q6H PRN IV PAIN LEVEL 6-10; Start at 21:00; Stop 03/04/17 at 20:59 Diphenhydramine HCl (Benadryl) 25 mg Q4H PRN IV PRURITUS Last administered on 01:59; Admin Dose 25 MG; Start 03/01/17 at 21:00 Nalbuphine HCl (Nubain) 10 mg Q4H PRN IV PRURITUS; Start 03/01/17 at 21:00 Ondansetron HCl (Zofran Inj) 4 mg Q6H PRN IV NAUSEA AND/OR VOMITING; Start at 21:00 Trimethobenzamide HCl (Tigan) 200 mg Q6H PRN IM NAUSEA AND/OR VOMITING; Start 03/01/17 at 21:00 Naloxone HCl (Narcan) 0.2 mg Q2M PRN IV FOR RESP RATE 8 OR LESS; Start at 21:00 Hydromorphone HCl (Dilaudid) 1 mg Q2H PRN IV PAIN; Start 03/02/17 at 10:15 LILIANA OLSON MD Mar 02, 2017 10:21
[2017-03-02] MEDS ORDERED: DIPHENHYDRAMINE 25 MG CAP PO PRN (10:30)
--- NOTE | 2017-03-02 17:00 | PN ---
DATE: 03/02/2017 First postoperative day. Stable vital signs. Postoperative x-ray shows satisfactory alignment of t he fracture and proper position of the fixation device. Postoperative H and H is 10.4/29.7. No sig ns of neurovascular compromise. Protected with knee immobilizer and no weightbearing for 6 to 8 wee ks. Dictated By: LAYNE BAL/BEATA Conf#: [id number] DID#: [id number]
[2017-03-02 20:00] VITALS: BP 137/66; RESP 20
[2017-03-03] MEDS: HYDROCODONE/APAP (5/325) TAB PO PRN ×5 (02:42→22:46)
[2017-03-03 05:42] LABS: CALCIUM 8.9 mg/dl (8.4-10.2); CREATININE 0.49 mg/dl (0.44-1.00)
[2017-03-03 06:17] LABS: POTASSIUM 2.5 mmol/L (3.5-5.1)
[2017-03-03] MEDS ORDERED: POTASSIUM CHLORIDE (SR) 20 MEQ TAB PO ONE (06:28)
[2017-03-03 07:35] VITALS: BP 157/77; RESP 18
[2017-03-03] MEDS: POTASSIUM CHLORIDE 250 ML IVPB SCH ×2 (08:14→15:38)
[2017-03-03] MEDS: CHOLECALCIFEROL 2,000 UNIT CAP PO SCH (08:21)
[2017-03-03] MEDS: NICOTINE (14 MG/24 HR) PATCH TRANSDERM SCH (08:23)
[2017-03-03] MEDS: ENOXAPARIN 40 MG/0.4 ML SYG SC SCH (08:36)
--- NOTE | 2017-03-03 16:25 | PN ---
Date/Time of Note Date/Time of Note DATE: 03/03/17 TIME: 16:04 Assessment/Plan VTE Prophylaxis VTE Prophylaxis Intervention: LMWH Lines/Catheters IV Catheter Type (from Nrsg): [place] Urinary Cath still in place: No Assessment/Plan Assessment/Plan 57 yo F admitted for L femur fracture following mechanical fall fracture of the distal metaphysis of the left femur. sp ORIF . also h/o poliomyelitis as a child with chronic left lower extremity weakness -cont pain control Hyponatremia: etio unclear. check urine and serum osms, am cortisol, urine sodium. TSH ok NO FREE WATER Anemia: ?chronic disease iron studies nl. MCV nl. f/u with PCP high cholesterol: f/u with PCP tob abuse: Smoking Cessation Therapy: Pt. was lectured for greater than 3 minutes on the health risks of continued smoking and the benefits of cessation. and this will continue to be reinforced throughout hospitalization. prohx: DVT prophx as per ortho PLAN: PT and discharge planning / pain control Subjective 24 Hr Interval Summary Free Text/Dictation pt still with significant postop pain Exam/Review of Systems Vital Signs Vitals Vital Signs Date Time Temp Pulse Resp B/P Pulse Ox O2 Delivery O2 Flow Rate FiO2 03/03/17 07:35 99.1 84 18 157/77 98 03/02/17 05:01 Room Air 03/01/17 20:33 2.0 Intake and Output 03/02/17 03/02/17 03/03/17 15:00 23:00 07:00 Intake Total 300 ml 1540 ml 750 ml Output Total 800 ml 1250 ml Balance 300 ml 740 ml -500 ml Exam nad, responds to questions appropriately no mrg lungs clear abd soft no rashes surgical dressings over LLE c/d/i Results Result Diagram: 03/01/17204403/03/17 0430 Results 24 hrs Laboratory Tests Test 03/03/17 04:30 03/03/17 11:25 Sodium Level 136 Potassium Level 2.5 *L Chloride Level 99 Carbon Dioxide Level 30 Anion Gap 10 Blood Urea Nitrogen 4 L Creatinine 0.49 Glucose Level 98 Calcium Level 8.9 Lab Scanned Report REFERENCE LAB Medications Medications Current Medications Docusate Sodium (Colace) 100 mg Q12H PRN PO CONSTIPATION; Start 02/27/17 at 06: 30 Bisacodyl (Dulcolax) 5 mg DAILY PRN PO CONSTIPATION Last administered on 14:19; Admin Dose 5 MG; Start 02/27/17 at 06:30 Heparin Sodium (Porcine) (Heparin (5000 Units/0.5 ml)) 5,000 unit Q12 SC Last administered on 02/28/17 08:25; Admin Dose 5,000 UNIT; Start 02/27/17 at 21:00 ; Status Future Hold Nicotine (Nicoderm 14 Mg/ 24hr) 1 patch DAILY TRANSDERM Last administered on 08:23; Admin Dose 1 PATCH; Start 02/27/17 at 15:00 Cholecalciferol (Vitamin D) 2,000 unit DAILY PO Last administered on 03/03/17 08:21; Admin Dose 2,000 UNIT; Start 02/28/17 at 09:30 Lorazepam (Ativan) 1 mg Q6H PRN PO AGITATION/ANXIETY Last administered on 01:15; Admin Dose 1 MG; Start 02/28/17 at 16:30 Enoxaparin Sodium (Lovenox) 40 mg DAILY SC Last administered on 03/03/17 08:36 ; Admin Dose 40 MG; Start 03/02/17 at 09:00 Acetaminophen/ Hydrocodone Bitart ([place] (5/325)) 1 tab Q3H PRN PO PAIN Last administered on 03/03/17 15:50; Admin Dose 1 TAB; Start 03/01/17 at 20:30 Ketorolac Tromethamine (Toradol) 30 mg Q6H PRN IV PAIN LEVEL 6-10; Start at 21:00; Stop 03/04/17 at 20:59 Nalbuphine HCl (Nubain) 10 mg Q4H PRN IV PRURITUS; Start 03/01/17 at 21:00 Ondansetron HCl (Zofran Inj) 4 mg Q6H PRN IV NAUSEA AND/OR VOMITING Last administered on 03/02/17 14:18; Admin Dose 4 MG; Start 03/01/17 at 21:00 Trimethobenzamide HCl (Tigan) 200 mg Q6H PRN IM NAUSEA AND/OR VOMITING; Start 03/01/17 at 21:00 Naloxone HCl (Narcan) 0.2 mg Q2M PRN IV FOR RESP RATE 8 OR LESS; Start at 21:00 Hydromorphone HCl (Dilaudid) 1 mg Q2H PRN IV PAIN; Start 03/02/17 at 10:15 Diphenhydramine HCl (Benadryl) 25 mg Q6H PRN PO ALLERGIC REACTION; Start at 10:30 SUNIL OBRIEN Mar 03, 2017 16:14
[2017-03-03 20:56] VITALS: BP 139/81; RESP 20
[2017-03-04] MEDS: HYDROCODONE/APAP (5/325) TAB PO PRN ×2 (05:03→11:06)
[2017-03-04 05:50] LABS: ADD SCAN DIFF NO
[2017-03-04 06:12] LABS: BASOPHIL # 0.1 10^3/ul (0.0-0.1); BASOPHILS % 0.7 % (0.0-2.0); EOSINOPHILS # 0.2 10^3/ul (0.0-0.5); EOSINOPHILS % 2.7 % (0.0-7.0); HEMOGLOBIN 9.5 g/dl (12.0-16.0); LYMPHOCYTES # 2.3 10^3/ul (0.8-2.9); LYMPHOCYTES % 32.5 % (15.0-51.0); MEAN CORPUSCULAR HEMOGLOBIN 33.6 pg (29.0-33.0); MEAN CORPUSCULAR HGB CONC 33.9 g/dl (32.0-37.0); MEAN CORPUSCULAR VOLUME 98.9 fl (82.0-101.0); MONOCYTE # 0.9 10^3/ul (0.3-0.9); MONOCYTES % 12.2 % (0.0-11.0); NEUTROPHIL # 3.7 10^3/ul (1.6-7.5); NEUTROPHILS % 51.6 % (39.0-77.0); PLATELET COUNT 386 10^3/UL (140-415); RED BLOOD COUNT 2.83 10^6/ul (4.20-5.40); RED CELL DISTRIBUTION WIDTH 13.7 % (11.5-14.5); WHITE BLOOD COUNT 7.1 10^3/ul (4.8-10.8)
[2017-03-04 06:49] LABS: CREATININE 0.42 mg/dl (0.44-1.00); MAGNESIUM 1.6 mg/dl (1.7-2.5); POTASSIUM 3.6 mmol/L (3.5-5.1)
[2017-03-04 08:05] VITALS: BP 149/83; RESP 18
[2017-03-04] MEDS: CHOLECALCIFEROL 2,000 UNIT CAP PO SCH (09:12)
[2017-03-04] MEDS: NICOTINE (14 MG/24 HR) PATCH TRANSDERM SCH (09:13)
[2017-03-04] MEDS: ENOXAPARIN 40 MG/0.4 ML SYG SC SCH (09:28)
[2017-03-04] MEDS ORDERED: POTASSIUM CHLORIDE (SR) 20 MEQ TAB PO STA (09:35)
--- NOTE | 2017-03-04 09:43 | DS ---
Date/Time of Note Date/Time of Note DATE: 03/04/17 TIME: 09:35 Discharge Summary Admission/Discharge Info Admit Date/Time Feb 27, 2017 at 03:10 Discharge Date/Time Discharge Diagnosis 57 yo F admitted for L femur fracture following mechanical fall 1. fracture of the distal metaphysis of the left femur. sp ORIF 6.20 2. h/o poliomyelitis as a child with chronic left lower extremity weakness 3. Anemia: 2/2 alcohol abuse 4. high cholesterol: f/u with PCP 5. Alcohol and tob abuse: S/p Cessation Therapy . Patient Condition: Stable Consults Ortho: Denilson . Procedures See hospital course . Hx of Present Illness Chief complaint: Fall This is a 57-year-old female presents to the ER after she fell onto her left extremity while coming back from the grocery store. Patient has a past medical history of polio and has a weak left leg. Patient was brought in with her family for severe lower extremity pain. Patient states that it is most painful around her knee. She denies any numbness or tingling of her leg. She did not hit her head. She denies any loss of consciousness. She does not have any nausea or vomiting. She denies any upper extremity pain. Patient did state that she was drinking yesterday. She states she drinks about 2-3 beer cans a day. Allergies: NKDA Medications: See NOV . Hospital Course 57-year-old female who was admitted after fall was found to have a left femoral fracture. She also did have a history of alcohol abuse as well as poliomyelitis that has left her with a weak left leg. She underwent open reduction and internal fixation of the distal femoral at the left knee March 01, 2017. She has done well postoperatively and was seen by physical therapy. Orthopedic doctor recommends to protect right knee with a knee immobilizer and no weightbearing for 6-8 weeks, and based on that PT recommend that a front wheel walker, a wheelchair, and elevating leg rests which are provided to the patient. Patient is encouraged to use any immobilizer at all times until cleared by Ortho, and is also strongly discouraged from drinking any alcohol. Other comorbidities include a hypochromic anemia consistent with a history of alcohol abuse, a hypomagnesemia and hypokalemia that was replaced, and a mildly elevated total cholesterol level for which the patient is recommended to maintain a low-cholesterol low-fat diet. Her urine toxicology on arrival was also positive for opiates but no other significant substances. A urinalysis was not highly suggestive of a UTI and as such and the culture came back negative as well. Other comorbidities were managed as per medical records, patient's pain was monitored and controlled as much as possible and at this time she has been assessed and cleared for safe discharge home. She will follow up with orthopedic surgery by calling the office and obtaining a follow- up appointment and she is also encouraged to follow-up with her primary care physician to notify him or her of the hospital events. Home Meds Active Scripts Naproxen* (Naproxen*) 500 Mg Tablet, 500 MG PO BID Y for PAIN, #20 TAB Prov:XAVIERGIAN DO 09/29/15 Levofloxacin* (Levofloxacin*) 500 Mg Tablet, 500 MG PO DAILY, #7 TAB Prov:GIAN PARK DO 09/29/15 Reported Medications Diphenhydramine Hcl* (Benadryl*) 25 Mg Cap, 25 MG PO Q6H Y for ALLERGIC REACTION , CAP 09/29/15 Follow-up Plan See hospital course. Primary Care Provider Humble Shafer Time spent on discharge: > 30 minutes Pending Labs Laboratory Tests Test 03/03/17 11:25 03/04/17 04:19 Lab Scanned Report REFERENCE [id number] White Blood Count 7.110^3/ul (4.8-10.8) Red Blood Count 2.8310^6/ul (4.20-5.40) Hemoglobin 9.5g/dl (12.0-16.0) Hematocrit 28.0% (37.0-47.0) Mean Corpuscular Volume 98.9fl (82.0-101.0) Mean Corpuscular Hemoglobin 33.6pg (29.0-33.0) Mean Corpuscular Hemoglobin Concent 33.9g/dl (32.0-37.0) Red Cell Distribution Width 13.7% (11.5-14.5) Platelet Count 12803^3/UL (140-415) Mean Platelet Volume 9.0fl (7.4-10.4) Neutrophils % 51.6% (39.0-77.0) Lymphocytes % 32.5% (15.0-51.0) Monocytes % 12.2% (0.0-11.0) Eosinophils % 2.7% (0.0-7.0) Basophils % 0.7% (0.0-2.0) Nucleated Red Blood Cells % 0.0/100WBC (0.0-0.0) Neutrophils # 3.710^3/ul (1.6-7.5) Lymphocytes # 2.310^3/ul (0.8-2.9) Monocytes # 0.910^3/ul (0.3-0.9) Eosinophils # 0.210^3/ul (0.0-0.5) Basophils # 0.110^3/ul (0.0-0.1) Nucleated Red Blood Cells # 0.010^3/ul (0.0-0.0) Sodium Level 137mmol/L (135-144) Potassium Level 3.6mmol/L (3.5-5.1) Chloride Level 101mmol/L (97-110) Carbon Dioxide Level 30mmol/L (21-31) Anion Gap 10 (8-16) Blood Urea Nitrogen 7mg/dl (7-20) Creatinine 0.42mg/dl (0.44-1.00) Glucose Level 101mg/dl (70-220) Calcium Level 9.0mg/dl (8.4-10.2) Magnesium Level 1.6mg/dl (1.7-2.5) SUNIL OBRIEN Mar 04, 2017 09:43
--- NOTE | 2017-03-04 09:48 | PDOCDIS ---
Discharge Instructions DIAGNOSIS Discharge Diagnosis 57 yo F admitted for L femur fracture following mechanical fall 1. fracture of the distal metaphysis of the left femur. sp ORIF 6.20 2. h/o poliomyelitis as a child with chronic left lower extremity weakness 3. Anemia: 2/2 alcohol abuse 4. high cholesterol: f/u with PCP 5. Alcohol and tob abuse: S/p Cessation Therapy . CONDITION Patient Condition: Stable HOME CARE INSTRUCTIONS: Diet Instructions: Low Fat /CholesterolSpecial Diet: High fibre REFERRALS Referring Provider: DON LIANG MD Other Referrals Please follow up [facility] Dr Liang for Orthopedics Name, Degree: Don Liang MD Specialty: Orthopedic Surgery Comments: Office Address: [address] [place] [address] [address] [place] [address] Office Office . OTHER ORDERS: Other Orders: Followup with your primary doctor within the next 1-2 weeks. If you don't have one please let someone know, we can give you resources that may help you pick one. You may call Dr Serge Pena's office. he's accepting new patients Name, Degree: Serge Pena MD Specialty: Internal Medicine Comments: Office Address: [address] [place] [address] [place] [id number] Office Office You may also call your insurance company to assign one to you. * Review your medication list with your nurse before leaving and if you need new prescriptions please let your nurse know. * I may have made changes to your home medications or given you new prescriptions, please let your primary doctor know as well. * Stay compliant with your medications and report any side effects to your PCP or pharmacist. * Return to the ER if you have any concerns and cannot reach your doctors or call your insurance company, they usually have a nurse that can help you. SUNIL OBRIEN Mar 04, 2017 09:48
[2017-03-04] MEDS ORDERED: HYDR-3498 PO (09:51)
[2017-03-04] MEDS ORDERED: DOCU-216 PO (09:51)
[2017-03-04] MEDS ORDERED: LORA1TAB PO (09:51)
[2017-03-04] MEDS ORDERED: CHOL20003 PO (09:51)
[2017-03-04] MEDS ORDERED: Nicotine (14 Mg/24 Hr) TRANSDERM (09:51)
[2017-03-04] MEDS ORDERED: MAGNESIUM SULFATE 2 GM/50 ML 50 ML IVPB ONE (10:30)
== END 2017-03-04 13:49 | disposition home or self-care (01) | DRG 482 ==
LOC: E/R 17:49 → MS1 02-27 03:10
PROVIDERS: ADMIT Family Medicine; ATTEND Family Medicine
PROC: 30233N1 Transfusion of Nonautologous Red Blood Cells into Peripheral Vein, Percutaneous Approach (ICD-10-PCS; 2017-02-28)
PROC: 0QSC04Z Reposition Left Lower Femur with Internal Fixation Device, Open Approach (ICD-10-PCS; principal; 2017-03-01 17:30)
DX: S72.462A Displaced supracondylar fracture with intracondylar extension of lower end of left femur, initial encounter for closed fracture (principal); E55.9 Vitamin D deficiency, unspecified; B91 Sequelae of poliomyelitis; E78.00 Pure hypercholesterolemia, unspecified; F10.10 Alcohol abuse, uncomplicated; D50.9 Iron deficiency anemia, unspecified; D63.8 Anemia in other chronic diseases classified elsewhere; E87.6 Hypokalemia; F17.200 Nicotine dependence, unspecified, uncomplicated; M62.562 Muscle wasting and atrophy, not elsewhere classified, left lower leg; W01.0XXA Fall on same level from slipping, tripping and stumbling without subsequent striking against object, initial encounter
CPT/HCPCS: 36430; 71010; 73510; 73550; 73560; 73562; 73590; 73610; 73700; 80048; 80053; 80061; 80306; 80307; 81001; 82306; 82533; 82550; 82553; 82652; 82728; 83036; 83540; 83735; 83930; 83935; 84100; 84300; 84439; 84443; 84484; 84703; 85025; 85610; 85730; 86850; 86900; 86901; 86920; 87086; 93005; 96374; 96375; 96376; 97110; 97116; 97162; 97530; 97542; C1713; J0690; J1100; J1170; J1200; J1644; J1650; J1885; J2060; J2250; J2270; J2274; J2405; J2710; J3010; J3250; J3411; J3475; J3480; J7030; P9016

== ENCOUNTER 2017-05-02 15:30 | Inpatient (IN) | payer MEDICAID ==
[~2017-05-02] VITALS: Ht 160 cm; Wt 61.4 kg
[~2017-05-02 15:30] MED LIST changes: +CHOL200073 PO; +DOCU-216 PO; +HYDR-3498 PO; -LEVO500T10 PO; +LORA1TAB PO; +Nicotine (14 Mg/24 Hr) TRANSDERM
[2017-05-02] MEDS ORDERED: ONDANSETRON 4 MG INJ IV STA (15:36)
[2017-05-02] MEDS ORDERED: CEFEPIME 2GM/50 ML (PMX) 50 ML IVPB STA (15:36)
[2017-05-02] MEDS ORDERED: SODIUM CHLORIDE 0.9% 1L BAG IV* STA (15:36)
[2017-05-02] MEDS ORDERED: HYDROmorphONE 1 MG/ML SYG IV STA (15:36)
[2017-05-02] MEDS ORDERED: VANCOMYCIN 1 GM (PMX) 250 ML IVPB ONE (16:00)
--- NOTE | 2017-05-02 16:05 | ERA ---
ER Documentation Chief Complaint Date/Time DATE: 05/02/17 TIME: 16:03 Chief Complaint HPI This is a 57-year-old pleasant female who arrives via EMS. The patient complains of nontraumatic left lower extremity pain. She has surgical ORIF of the left femur approximately 1-1/[address] Cook. She states over the last several days she has noted swelling of the knee with associated warmth and tenderness now to the point where she cannot range her knee. She notes unilateral leg swelling as well. No chest pain or shortness of breath. The pain however is noted to be 9 out of 10 throbbing and worse with any movement. No fevers or chills. ROS All systems reviewed and are negative except as per history of present illness. Medications Home Meds Reported Medications Diphenhydramine Hcl* (Benadryl*) 25 Mg Cap, 25 MG PO Q6H Y for ALLERGIC REACTION , CAP 09/29/15 Discontinued Scripts Cholecalciferol (Vitamin D3) (VITAMIN D-3) 2,000 Unit Capsule, 2000 UNIT PO DAILY for 30 Days, CAP 2 Refills Prov:ROMY OBRIENKeon JeffersonSalvador 03/04/17 Docusate Sodium (Dok) 100 Mg Capsule, 100 MG PO Q12H for 14 Days, CAP Prov:SUNIL OBRIENSalvador 03/04/17 Lorazepam* (Lorazepam*) 1 Mg Tablet, 1 MG PO Q6H Y for AGITATION/ANXIETY, #14 TAB Prov:ROMY OBRIENKeon Jefferson. 03/04/17 Hydrocodone Bit-Acetaminophen (Hydrocodone Bit-APAP) 5-325MG Tablet, 1 TAB PO Q3H Y for PAIN, #21 TAB Prov:ROMY OBRIENKeon JeffersonSalvador 03/04/17 [Nicotine (14 Mg/24 Hr)] 1 PATCH PATCH No Conflict Check, 1 PATCH TRANSDERM DAILY for 30 Days, 2 Refills Prov:SUNIL OBRIENSalvador 03/04/17 Naproxen* (Naproxen*) 500 Mg Tablet, 500 MG PO BID Y for PAIN, #20 TAB Prov:GIAN PARK DO 09/29/15 Allergies Allergies: Coded Allergies: No Known Allergy (Unverified , 05/02/17) PMhx/Soc History of Surgery: Yes (C Section (1980)) Anesthesia Reaction: No Hx Neurological Disorder: No Hx Respiratory Disorders: Yes Hx Cardiac Disorders: No Hx Psychiatric Problems: No Hx Miscellaneous Medical Probl: Yes (POLIO. L LE WEAKNESS) Hx Alcohol Use: Yes (2 drink at night) Hx Substance Use: No Hx Tobacco Use: Yes (1 pack/3 days) FmHx Family History: No diabetes Physical Exam Vitals Vital Signs Date Time Temp Pulse Resp B/P Pulse Ox O2 Delivery O2 Flow Rate FiO2 05/02/17 18:36 98.0 100 12 113/74 97 Room Air 05/02/17 17:32 98.1 97 21 115/70 95 Physical Exam General: Well developed, well nourished, no acute distress Head: Normocephalic, atraumatic. Eyes: Pupils equally reactive, EOM intact ENT: Moist mucous membranes Neck: Supple, no lymphadenopathy Respiratory: Lungs clear bilaterally, no distress Cardiovascular: RRR, no murmurs, rubs, or gallops Abdominal: Soft, non-tender, non-distended, no peritoneal signs : Deferred MSK: Left lower extremity with unilateral swelling and slight pitting edema to the calf. The patient has significant swelling and warmth and tenderness overlying the left knee with limited range of motion. Surgical site is well- appearing. The patient has 2+ dorsalis pedis pulses. Good capillary refill distally. Neurologic: Alert and oriented, moving all extremities, normal speech, no focal weakness, no cerebellar signs Skin: No rash Psych: Normal mood Result Diagram: 05/02/17 1634 05/02/17 1634 Results 24 hrs Laboratory Tests Test 05/02/17 16:34 White Blood Count 10.810^3/ul Red Blood Count 3.9610^6/ul Hemoglobin 12.9g/dl Hematocrit 36.5% Mean Corpuscular Volume 92.2fl Mean Corpuscular Hemoglobin 32.6pg Mean Corpuscular Hemoglobin Concent 35.3g/dl Red Cell Distribution Width 13.6% Platelet Count 17076^3/UL Mean Platelet Volume 7.9fl Neutrophils % 71.4% Lymphocytes % 22.4% Monocytes % 5.3% Eosinophils % 0.1% Basophils % 0.5% Nucleated Red Blood Cells % 0.0/100WBC Neutrophils # (Manual) 810^3/ul Lymphocytes # 2.410^3/ul Monocytes # 0.610^3/ul Eosinophils # 0.010^3/ul Basophils # 0.110^3/ul Nucleated Red Blood Cells # 0.010^3/ul Erythrocyte Sedimentation Rate 20mm/Hr Prothrombin Time 11.7Sec Prothrombin Time Ratio 0.9 INR International Normalized Ratio 0.86 Activated Partial Thromboplast Time 38.3Sec Sodium Level 128mmol/L Potassium Level 4.1mmol/L Chloride Level 89mmol/L Carbon Dioxide Level 22mmol/L Anion Gap 21 Blood Urea Nitrogen 4mg/dl Creatinine 0.53mg/dl Glucose Level 82mg/dl Lactic Acid Level 4.0mmol/L Calcium Level 9.3mg/dl Total Bilirubin 0.3mg/dl Direct Bilirubin 0.00mg/dl Indirect Bilirubin 0.3mg/dl Aspartate Amino Transf (AST/SGOT) 45IU/L Alanine Aminotransferase (ALT/SGPT) 42IU/L Alkaline Phosphatase 122IU/L C-Reactive Protein 1.4mg/dl Total Protein 9.1g/dl Albumin 5.1g/dl Globulin 4.00g/dl Albumin/Globulin Ratio 1.27 Current Medications Medications (Trade) Dose Ordered Sig/Renetta Route PRN Reason Start Time Stop Time Status Last Admin Dose Admin Sodium Chloride 2170 ml 2,170 ml BOLUS OVER 2 HOURS STAT IV* 05/02/17 15:36 05/02/17 15:40 DC 05/02/17 17:11 Cefepime HCl 50 ml @ 100 mls/hr ONCE STAT IVPB 05/02/17 15:36 05/02/17 16:05 DC 05/02/17 17:10 Vancomycin HCl (Vancocin) 250 ml @ 125 mls/hr ONCE ONCE IVPB 05/02/17 16:00 05/02/17 17:59 DC 05/02/17 17:52 Hydromorphone HCl (Dilaudid) 0.5 mg ONCE STAT IV 05/02/17 15:36 05/02/17 15:40 DC 05/02/17 17:10 Ondansetron HCl (Zofran Inj) 4 mg ONCE STAT IV 05/02/17 15:36 05/02/17 15:40 DC 05/02/17 17:10 Ondansetron HCl (Zofran Inj) 4 mg BRIDGE ORDER PRN IV NAUSEA AND/OR VOMITING 05/02/17 19:30 05/03/17 19:29 Acetaminophen (Tylenol Tab) 650 mg ER BRIDGE PRN PO MILD PAIN/FEVER 05/02/17 19:30 05/03/17 19:29 Procedures/MDM EKG, MONITORS, & DIAGNOSTIC IMAGING: EKG: I reviewed and interpreted a 12-lead EKG. Rhythm: Normal sinus rhythm Ectopy: None Intervals: No abnormalities ST segments: No elevations or depressions T waves: No contiguous inversions Chest x-ray: I reviewed and interpreted a 1 view of the chest Mediastinum: No enlargement Cardiac silhouette: No cardiomegaly Airspace: Clear lung klein bilaterally without evidence of pneumothorax Bones: No evidence of fracture X-ray left knee: I reviewed and interpreted multiple views of the x-ray Bones: No evidence of acute fracture dislocation or subluxation, hardware intact Soft tissue: No evidence of foreign body X-ray left femur I reviewed and interpreted multiple views of the x-ray Bones: No evidence of acute fracture dislocation or subluxation, hardware intact Soft tissue: No evidence of foreign body LAB INTERPRETATION: No significant leukocytosis but lactic acid elevation and CRP elevation. MEDICAL DECISION MAKING: The patient presents with left knee pain, nontraumatic. Differential includes and is concerning for septic arthritis, consider DVT. Low clinical concern for acute arterial process. Soft compartments no evidence of deep space infection. However, strong enough concern for septic arthritis of the patient will benefit from empiric antibiotics, blood cultures. Given that the patient has hardware would defer arthrocentesis to the patient's orthopedic surgeon Dr. Cook. He was notified upon the patient's arrival. ER COURSE: The patient was given pain control, blood cultures. Vancomycin and cefepime provided. Laboratory analysis reassuring other than lactic acid. No evidence of septic shock. The patient does not meet SIRS criteria in the emergency room. Lactic acid does not represent severe sepsis or septic shock. The patient however did receive 30 cc/kg of saline and broad-spectrum antibiotics. No indication for repeat fluid or volume assessment based on this process in the emergency department. I kept the patient and/or family informed of laboratory and diagnostic imaging results throughout the emergency room course. DISPOSITION PLAN: Medical surgical admission for management of septic arthritis CONSULTATION: Accepting care team and consultations: I discussed the current laboratory data, diagnostic imaging and emergency care provided. Admitting team: Dr. Owens Admitting team indication: Insurance directed Consulting services: Orthopedics Dr. Cook Departure Diagnosis: Primary Impression: Septic arthritis of knee, left Qualified Code: M00.9 - Pyogenic arthritis of left knee joint, due to unspecified organism Additional Impression: Lactic acidosis Condition: Stable NORMAN GENAO MD May 02, 2017 16:05
--- NOTE | 2017-05-02 16:25 | RADRPT ---
PROCEDURE: US Lower extremity Venous. CLINICAL INDICATION: Left leg edema, pain TECHNIQUE: Multiple sonographic images of the left lower extremity deep venous system was obtained utilizing grayscale, color-flow, compressive sonography and doppler imaging with augmentation. The images were reviewed on a PACS workstation. COMPARISON: None. FINDINGS: There is normal compressibility and flow within the left common femoral, femoral, posterior tibial, peroneal and popliteal veins. RPTAT: AA IMPRESSION: No sonographic evidence for deep venous thrombosis. .Arya Rivero MD, MD Date Time Electronically viewed and signed by .Arya Rivero MD, on 05/02/2017 16:25 .S/
[2017-05-02 16:43] LABS: BASOPHIL # 0.1 10^3/ul (0.0-0.1); BASOPHILS % 0.5 % (0.0-2.0); EOSINOPHILS % 0.1 % (0.0-7.0); HEMATOCRIT 36.5 % (37.0-47.0); HEMOGLOBIN 12.9 g/dl (12.0-16.0); LYMPHOCYTES # 2.4 10^3/ul (0.8-2.9); LYMPHOCYTES % 22.4 % (15.0-51.0); MEAN CORPUSCULAR HEMOGLOBIN 32.6 pg (29.0-33.0); MEAN CORPUSCULAR HGB CONC 35.3 g/dl (32.0-37.0); MEAN CORPUSCULAR VOLUME 92.2 fl (82.0-101.0); MEAN PLATELET VOLUME 7.9 fl (7.4-10.4); MONOCYTE # 0.6 10^3/ul (0.3-0.9); MONOCYTES % 5.3 % (0.0-11.0); NEUTROPHILS % 71.4 % (39.0-77.0); PLATELET COUNT 379 10^3/UL (140-415); RED BLOOD COUNT 3.96 10^6/ul (4.20-5.40); RED CELL DISTRIBUTION WIDTH 13.6 % (11.5-14.5); WHITE BLOOD COUNT 10.8 10^3/ul (4.8-10.8)
[2017-05-02 16:58] LABS: INR 0.86; PROTIME 11.7 Sec (12.2-14.2); PT RATIO 0.9
[2017-05-02 16:59] LABS: PARTIAL THROMBOPLASTIN TIME 38.3 Sec (25.0-35.0)
[2017-05-02 17:02] LABS: BILIRUBIN,INDIRECT 0.3 mg/dl (0-1.1); BILIRUBIN,TOTAL 0.3 mg/dl (0.2-1.3); CALCIUM 9.3 mg/dl (8.4-10.2); CREATININE 0.53 mg/dl (0.44-1.00); POTASSIUM 4.1 mmol/L (3.5-5.1)
[2017-05-02 17:03] LABS: ALBUMIN 5.1 g/dl (3.3-4.9); ALBUMIN/GLOBULIN RATIO 1.27; C-REACTIVE PROTEIN 1.4 mg/dl (0.0-0.9); TOTAL PROTEIN 9.1 g/dl (6.1-8.1)
[2017-05-02 17:32] VITALS: Ht 160 cm; Wt 61.4 kg
[2017-05-02] MEDS ORDERED: ONDANSETRON 4 MG INJ IV PRN ×2 (19:30→22:30)
[2017-05-02] MEDS ORDERED: ACETAMINOPHEN 325 MG TAB PO PRN (19:30)
--- NOTE | 2017-05-02 19:32 | RADRPT ---
PROCEDURE: Portable chest x-ray. CLINICAL INDICATION: 57 years of age, female. Sepsis. TECHNIQUE: Portable AP view of the chest. COMPARISON: February 27, 2017 FINDINGS: Cardiomediastinal contours are normal. Nonspecific mild opacity at the left lung base may represent atelectasis or an early infiltrate. Mell ngs are otherwise clear. Negative for pleural effusion or pneumothorax. No acute bony abnormality. IMPRESSION: Nonspecific mild opacity at the left lung base may represent atelectasis or an early infiltrate. RPTAT: HCTS Physician Kelechi Date Time Electronically viewed and signed by Physician Kelechi on 05/02/2017 19:32 CS/
--- NOTE | 2017-05-02 19:44 | RADRPT ---
PROCEDURE: XR Knee. CLINICAL INDICATION: 57 years of age, female. Septic joint. General pain.. TECHNIQUE: Three views of the left knee. COMPARISON: March 01, 2017 FINDINGS: There is a lateral side plate transfixed by screws transfixing a supracondylar fracture of the dista l femur. Most distal screw may have pulled back slightly since prior exam. Comparison is difficult due to projection. Fracture line remains visualized. There is exuberant callus representing a hea ling response. Distal fracture fragment is displaced medial and posterior 0.4 cm that is similar to prior exam. Bones are osteopenic. There is a vertical radiolucency within the proximal lateral tibial metadiaph ysis concerning for a hairline fracture that is only seen in the frontal projection. This is new fr om prior exam. There is extensive osteopenia of the patella that is increased from prior exam. Normal alignment of the knee. There is a moderate knee joint effusion with periarticular soft tissue swelling. Negative for abnormal soft tissue gas. IMPRESSION: Status post open reduction internal fixation of supracondylar fracture of distal femur. Most distal screw may have pulled back slightly since prior exam. Alternatively, this appearance could be proj ectional. Hardware is otherwise intact. Supracondylar fracture demonstrates a healing response with exuberant callus. However, fracture fermín e is still clearly visualized. Vertical radiolucency in proximal tibia is concerning for an acute fracture and is new from prior ex am. This could better be evaluated with CT if the clinical situation warrants. Moderate joint effusion and periarticular soft tissue swelling is concerning for a septic joint that is suspected clinically. Negative for soft tissue gas. Suggest diagnostic joint aspiration. RPTAT: HCTS Physician Kelechi Date Time Electronically viewed and signed by Physician Kelechi on 05/02/2017 19:44 /
--- NOTE | 2017-05-02 19:46 | RADRPT ---
PROCEDURE: XR Femur. CLINICAL INDICATION: 57 years of age, female. Generalized pain. Suspect septic joint.. TECHNIQUE: AP and lateral views of the left femur. COMPARISON: Left knee x-rays from the same day FINDINGS: Status post open reduction internal fixation of supracondylar fracture of distal left femur with kate e plate and screws. This has been evaluated on the x-rays reported separately. No acute fractures are identified in the more proximal femoral shaft or at the left hip. Alignment of the left hip is anatomic.. IMPRESSION: Status post open reduction internal fixation of supracondylar fracture distal left femur. This is d escribed on the left knee x-rays reported separately. Negative for evidence of acute fracture in th e more proximal femur. RPTAT: HCTS Physician Kelechi Date Time Electronically viewed and signed by Anne Marie Sky Physician on 05/02/2017 19:46 /
[2017-05-02] MEDS ORDERED: morphine 4 MG/ML VIAL IV STA (20:42)
[2017-05-02] MEDS ORDERED: morphine 4 MG/ML VIAL ONE (20:46)
[2017-05-02 21:04] VITALS: TEMP 98.3
[2017-05-02 22:15] VITALS: BP 169/74; PULSE 115; RESP 16
--- NOTE | 2017-05-02 22:28 | HP ---
Date/Time of Note Date/Time of Note DATE: 05/02/17 TIME: 22:07 Assessment/Plan VTE Prophylaxis VTE Prophylaxis Intervention: LMWH Assessment/Plan Assessment/Plan 57-year-old female who presents status post accidental fall with the followin. Severe left lower extremity pain secondary to #2 and 3 2. ?Septic arthritis left knee 3. Probable acute proximal tibia fracture 4. Healing previous supra condylar left femoral fracture 5. Chronic alcohol use rule out abuse 6. Hyponatremia likely secondary to chronic alcohol use 7. Chronic megaloblastic anemia and again likely associated with chronic alcohol use 8. Septic with lactic acidosis secondary to #2 9. Chronic tobacco use 10. History of poliomyelitis with chronic bilateral lower extremity weakness that keeps patient wheelchair bound most of the time PLAN: Patient will need further workup to include a CAT scan of the lower extremity as well as left knee joint aspiration, fluid analysis and cultures. Orthopedic surgery has been notified by the ER doctor, we will await his recommendations In interim, continue empiric antibiotics, pain control, as well as other supportive care IV hydration to include banana bag to hopefully help with hyponatremia as well as lactic acidosis Follow-up all cultures and titrate antibiotics as indicated. Consider ID consult if necessary. Further interventions per clinical course Prophylaxis: Lovenox/H2-chela HPI/ROS Admit Date/Time Admit Date/Time May 02, 2017 at 19:15 Hx of Present Illness 57-year-old female who was discharged from this hospital in February after she had sustained a fracture of the distal metaphysis of left femur and underwent open reduction internal fixation March 01. She has a history of polio as a child and has chronic lower extremity weakness. The patient reports mopping the floor yesterday and sustaining another accidental fall. She had some discomfort in her left knee and lower leg after the fall but she was able to move herself up into her wheelchair. Please note that the patient spends most of her time in a wheelchair. However she has been having intermittent pain since then and pain has slowly worsened until he became about 10 out of 10 when she came to the emergency room earlier this evening. Imaging of the knee and the left MR is concerning for a possible screw displacement, persistent fracture line in her previous supracondylar fracture, and now concern for acute fracture in the proximal tibia. Also there is some moderate joint effusion and periarticular soft tissue swelling that is concerning for septic joint. Imaging was negative however for soft tissue gas and radiologist recommended a diagnostic joint aspiration. She is being admitted for orthopedic review, further management. She is currently a lot of pain in her knee and her left calf and lower leg. ROS 12 point review if systems was done and pertinent findings are as noted. PMH/Family/Social Past Medical History 1. fracture of the distal metaphysis of the left femur. sp ORIF 6.20 2. h/o poliomyelitis as a child with chronic left lower extremity weakness 3. Anemia: 2/2 alcohol abuse 4. high cholesterol 5. h /o Alcohol and tob abuse Past Surgical History * ORIF February 2017 * Social History Alcohol Use: other (2 drinks per night) Smoking Status: Current every day smoker (1/3 pack per day) Drug Use: none Exam/Review of Systems Vital Signs Vitals VS - Last 72 Hours, by Label Date Time Temp Pulse Resp B/P Pulse Ox O2 Delivery O2 Flow Rate FiO2 05/02/17 21:04 98.3 90 17 117/61 98 Room Air 05/02/17 18:36 98.0 100 12 113/74 97 Room Air 05/02/17 17:32 98.1 97 21 115/70 95 Vital Signs Date Time Temp Pulse Resp B/P Pulse Ox O2 Delivery O2 Flow Rate FiO2 05/02/17 21:04 98.3 90 17 117/61 98 Room Air Exam Exam Constitutional: alert, oriented, in painful distress Head: atraumatic, normocephalic Neck: non-tender, supple Respiratory: clear to auscultation Cardiovascular: regular rate and rhythm Gastrointestinal: S/ NT / ND / +BS Extremities: Left lower extremity with unilateral swelling and slight pitting edema to the calf. The patient has significant swelling and warmth and tenderness overlying the left knee with limited range of motion. Surgical site is well-appearing. The patient has 2+ dorsalis pedis pulses. Good capillary refill distally. Labs Result Diagram: 05/02/17 1634 05/02/17 1634 Procedures Procedures Laboratory Tests Test 05/02/17 16:34 05/02/17 20:20 White Blood Count 10.810^3/ul Red Blood Count 3.9610^6/ul Hemoglobin 12.9g/dl Hematocrit 36.5% Mean Corpuscular Volume 92.2fl Mean Corpuscular Hemoglobin 32.6pg Mean Corpuscular Hemoglobin Concent 35.3g/dl Red Cell Distribution Width 13.6% Platelet Count 23863^3/UL Mean Platelet Volume 7.9fl Neutrophils % 71.4% Lymphocytes % 22.4% Monocytes % 5.3% Eosinophils % 0.1% Basophils % 0.5% Nucleated Red Blood Cells % 0.0/100WBC Neutrophils # (Manual) 810^3/ul Lymphocytes # 2.410^3/ul Monocytes # 0.610^3/ul Eosinophils # 0.010^3/ul Basophils # 0.110^3/ul Nucleated Red Blood Cells # 0.010^3/ul Erythrocyte Sedimentation Rate 20mm/Hr Prothrombin Time 11.7Sec Prothrombin Time Ratio 0.9 INR International Normalized Ratio 0.86 Activated Partial Thromboplast Time 38.3Sec Sodium Level 128mmol/L Potassium Level 4.1mmol/L Chloride Level 89mmol/L Carbon Dioxide Level 22mmol/L Anion Gap 21 Blood Urea Nitrogen 4mg/dl Creatinine 0.53mg/dl Glucose Level 82mg/dl Lactic Acid Level 4.0mmol/L 2.4mmol/L Calcium Level 9.3mg/dl Total Bilirubin 0.3mg/dl Direct Bilirubin 0.00mg/dl Indirect Bilirubin 0.3mg/dl Aspartate Amino Transf (AST/SGOT) 45IU/L Alanine Aminotransferase (ALT/SGPT) 42IU/L Alkaline Phosphatase 122IU/L C-Reactive Protein 1.4mg/dl Total Protein 9.1g/dl Albumin 5.1g/dl Globulin 4.00g/dl Albumin/Globulin Ratio 1.27 ER INTERVENTIONS Medications (Trade) Dose Ordered Sig/Renetta Route PRN Reason Start Time Stop Time Status Last Admin Dose Admin Sodium Chloride 2170 ml 2,170 ml BOLUS OVER 2 HOURS STAT IV* 05/02/17 15:36 05/02/17 15:40 DC 05/02/17 17:11 2,170 ML Cefepime HCl 50 ml @ 100 mls/hr ONCE STAT IVPB 05/02/17 15:36 05/02/17 16:05 DC 05/02/17 17:10 100 MLS/HR Vancomycin HCl (Vancocin) 250 ml @ 125 mls/hr ONCE ONCE IVPB 05/02/17 16:00 05/02/17 17:59 DC 05/02/17 17:52 125 MLS/HR Hydromorphone HCl (Dilaudid) 0.5 mg ONCE STAT IV 05/02/17 15:36 05/02/17 15:40 DC 05/02/17 17:10 0.5 MG Ondansetron HCl (Zofran Inj) 4 mg ONCE STAT IV 05/02/17 15:36 05/02/17 15:40 DC 05/02/17 17:10 4 MG Ondansetron HCl (Zofran Inj) 4 mg BRIDGE ORDER PRN IV NAUSEA AND/OR VOMITING 05/02/17 19:30 05/03/17 19:29 Acetaminophen (Tylenol Tab) 650 mg ER BRIDGE PRN PO MILD PAIN/FEVER 05/02/17 19:30 05/03/17 19:29 Morphine Sulfate (morphine) 4 mg ONCE STAT IV 05/02/17 20:42 05/02/17 20:46 DC 05/02/17 20:54 4 MG Morphine Sulfate (morphine) 4 mg STK-MED ONCE .ROUTE 05/02/17 20:46 05/02/17 20:47 DC PROCEDURE: XR Knee. CLINICAL INDICATION: 57 years of age, female. Septic joint. General pain.. TECHNIQUE: Three views of the left knee. COMPARISON: March 01, 2017 FINDINGS: There is a lateral side plate transfixed by screws transfixing a supracondylar fracture of the distal femur. Most distal screw may have pulled back slightly since prior exam. Comparison is difficult due to projection. Fracture line remains visualized. There is exuberant callus representing a healing response. Distal fracture fragment is displaced medial and posterior 0.4 cm that is similar to prior exam. Bones are osteopenic. There is a vertical radiolucency within the proximal lateral tibial metadiaphysis concerning for a hairline fracture that is only seen in the frontal projection. This is new from prior exam. There is extensive osteopenia of the patella that is increased from prior exam. Normal alignment of the knee. There is a moderate knee joint effusion with periarticular soft tissue swelling. Negative for abnormal soft tissue gas. IMPRESSION: Status post open reduction internal fixation of supracondylar fracture of distal femur. Most distal screw may have pulled back slightly since prior exam. Alternatively, this appearance could be projectional. Hardware is otherwise intact. Supracondylar fracture demonstrates a healing response with exuberant callus. However, fracture line is still clearly visualized. Vertical radiolucency in proximal tibia is concerning for an acute fracture and is new from prior exam. This could better be evaluated with CT if the clinical situation warrants. Moderate joint effusion and periarticular soft tissue swelling is concerning for a septic joint that is suspected clinically. Negative for soft tissue gas. Suggest diagnostic joint aspiration. RPTAT: HCTS Physician Kelechi Date Time Electronically viewed and signed by Physician Kelechi on 05/02/2017 19: 44 PROCEDURE: XR Femur. CLINICAL INDICATION: 57 years of age, female. Generalized pain. Suspect septic joint.. TECHNIQUE: AP and lateral views of the left femur. COMPARISON: Left knee x-rays from the same day FINDINGS: Status post open reduction internal fixation of supracondylar fracture of distal left femur with side plate and screws. This has been evaluated on the x- rays reported separately. No acute fractures are identified in the more proximal femoral shaft or at the left hip. Alignment of the left hip is anatomic.. IMPRESSION: Status post open reduction internal fixation of supracondylar fracture distal left femur. This is described on the left knee x-rays reported separately. Negative for evidence of acute fracture in the more proximal femur. RPTAT: HCTS Anne Marie Sky, Physician Date Time PROCEDURE: US Lower extremity Venous. CLINICAL INDICATION: Left leg edema, pain TECHNIQUE: Multiple sonographic images of the left lower extremity deep venous system was obtained utilizing grayscale, color-flow, compressive sonography and doppler imaging with augmentation. The images were reviewed on a PACS workstation. COMPARISON: None. FINDINGS: There is normal compressibility and flow within the left common femoral, femoral , posterior tibial, peroneal and popliteal veins. RPTAT: AA IMPRESSION: No sonographic evidence for deep venous thrombosis. .Arya Rivero MD, MD Date Time Electronically viewed and signed by .Arya Rivero MD, MD on 05/02/2017 16: 25 .S/ CC: NORMAN GENAO MD PROCEDURE: Portable chest x-ray. CLINICAL INDICATION: 57 years of age, female. Sepsis. TECHNIQUE: Portable AP view of the chest. COMPARISON: February 27, 2017 FINDINGS: Cardiomediastinal contours are normal. Nonspecific mild opacity at the left lung base may represent atelectasis or an early infiltrate. Lungs are otherwise clear. Negative for pleural effusion or pneumothorax. No acute bony abnormality. IMPRESSION: Nonspecific mild opacity at the left lung base may represent atelectasis or an early infiltrate. RPTAT: HCTS Physician Kelechi Date Time Electronically viewed and signed by Anne Marie Sky Physician on 05/02/2017 19: 32 CS/ CC: NORMAN GENAO MD ABE, BOLATITO M. May 02, 2017 22:17 SUNIL OBRIEN May 02, 2017 22:17
[2017-05-02] MEDS ORDERED: DIPHENHYDRAMINE 25 MG CAP PO PRN (22:30)
[2017-05-02] MEDS ORDERED: MULTIVITAMINS 10 ML, THIAMINE 100 MG, FOLIC ACID 1 MG in SOD CHLORIDE 0.9% 1,000 ML IVPB SCH (23:30)
[2017-05-03] MEDS: SOD CHLORIDE 0.9% 1,000 ML IV SCH ×3 (00:17→21:40)
[2017-05-03] MEDS: morphine 4 MG/ML VIAL IV PRN ×4 (00:17→21:40)
[2017-05-03 02:10] VITALS: BP 136/64; RESP 19
[2017-05-03] MEDS: HYDROCODONE/APAP (7.5/325) TAB PO PRN (03:57)
[2017-05-03 05:45] LABS: BASOPHIL # 0.1 10^3/ul (0.0-0.1); BASOPHILS % 0.7 % (0.0-2.0); EOSINOPHILS # 0.1 10^3/ul (0.0-0.5); EOSINOPHILS % 1.4 % (0.0-7.0); HEMATOCRIT 32.9 % (37.0-47.0); HEMOGLOBIN 11.5 g/dl (12.0-16.0); LYMPHOCYTES # 2.3 10^3/ul (0.8-2.9); LYMPHOCYTES % 26.8 % (15.0-51.0); MEAN CORPUSCULAR HEMOGLOBIN 32.6 pg (29.0-33.0); MEAN CORPUSCULAR VOLUME 93.2 fl (82.0-101.0); MEAN PLATELET VOLUME 8.7 fl (7.4-10.4); MONOCYTE # 0.8 10^3/ul (0.3-0.9); MONOCYTES % 8.6 % (0.0-11.0); NEUTROPHILS % 62.2 % (39.0-77.0); PLATELET COUNT 360 10^3/UL (140-415); RED BLOOD COUNT 3.53 10^6/ul (4.20-5.40); RED CELL DISTRIBUTION WIDTH 13.7 % (11.5-14.5); WHITE BLOOD COUNT 8.7 10^3/ul (4.8-10.8)
[2017-05-03 06:06] LABS: CALCIUM 8.8 mg/dl (8.4-10.2); CREATININE 0.47 mg/dl (0.44-1.00); MAGNESIUM 1.6 mg/dl (1.7-2.5); POTASSIUM 3.7 mmol/L (3.5-5.1)
[2017-05-03 07:27] VITALS: BP 172/79; RESP 18
[2017-05-03] MEDS: FAMOTIDINE 20 MG TAB PO SCH ×2 (08:10→20:07)
[2017-05-03] MEDS: DOCUSATE SODIUM 100 MG CAP PO SCH ×2 (08:10→20:07)
[2017-05-03] MEDS: ENOXAPARIN 40 MG/0.4 ML SYG SC SCH (08:24)
--- NOTE | 2017-05-03 12:02 | CONS ---
Date/Time of Note Date/Time of Note DATE: 05/03/17 TIME: 12:01 Consultation Date/Type/Reason Admit Date/Time May 02, 2017 at 19:15 Date of Consultation: May 03, 2017 Type of Consultation: ID Reason for Consultation Antibiotic management Social History Alcohol Use: other (2 drinks per night) Smoking Status: Current every day smoker Drug Use: none Exam/Review of Systems Vital Signs Vitals Vital Signs Date Time Temp Pulse Resp B/P Pulse Ox O2 Delivery O2 Flow Rate FiO2 05/03/17 07:27 98.1 86 18 172/79 95 05/02/17 22:15 Room Air Intake and Output 05/02/17 05/02/17 05/03/17 15:00 23:00 07:00 Intake Total 1025 ml Balance 1025 ml Results Result Diagram: 05/03/17 0500 05/03/17 0500 Results 24 hrs Laboratory Tests Test 05/02/17 16:34 05/02/17 20:20 05/02/17 22:10 05/03/17 05:00 White Blood Count 10.8 # 8.7 Red Blood Count 3.96 #L 3.53 L Hemoglobin 12.9 # 11.5 L Hematocrit 36.5 #L 32.9 L Mean Corpuscular Volume 92.2 93.2 Mean Corpuscular Hemoglobin 32.6 32.6 Mean Corpuscular Hemoglobin Concent 35.3 35.0 Red Cell Distribution Width 13.6 13.7 Platelet Count 379 360 Mean Platelet Volume 7.9 8.7 Neutrophils % 71.4 62.2 Lymphocytes % 22.4 26.8 Monocytes % 5.3 8.6 Eosinophils % 0.1 1.4 Basophils % 0.5 0.7 Nucleated Red Blood Cells % 0.0 0.0 Neutrophils # (Manual) 8 H 5 Lymphocytes # 2.4 2.3 Monocytes # 0.6 0.8 Eosinophils # 0.0 0.1 Basophils # 0.1 0.1 Nucleated Red Blood Cells # 0.0 0.0 Erythrocyte Sedimentation Rate 20 Prothrombin Time 11.7 L Prothrombin Time Ratio 0.9 INR International Normalized Ratio 0.86 Activated Partial Thromboplast Time 38.3 H Sodium Level 128 L 134 L Potassium Level 4.1 3.7 Chloride Level 89 L 98 Carbon Dioxide Level 22 24 Anion Gap 21 H 16 Blood Urea Nitrogen 4 L 3 L Creatinine 0.53 0.47 Glucose Level 82 72 Lactic Acid Level 4.0 *H 2.4 *H 2.0 1.2 Calcium Level 9.3 8.8 Total Bilirubin 0.3 Direct Bilirubin 0.00 Indirect Bilirubin 0.3 Aspartate Amino Transf (AST/SGOT) 45 Alanine Aminotransferase (ALT/SGPT) 42 Alkaline Phosphatase 122 H C-Reactive Protein 1.4 H Total Protein 9.1 H Albumin 5.1 H Globulin 4.00 H Albumin/Globulin Ratio 1.27 Magnesium Level 1.6 L Medications Medications Current Medications Diphenhydramine HCl 25 mg 25 mg Q6H PRN PO ALLERGIC REACTION; Start 05/02/17 at 22:30 Sodium Chloride (NS) 1,000 ml @ 125 mls/hr Q8H IV Last administered on 10:19; Admin Dose 125 MLS/HR; Start 05/03/17 at 07:40; Stop 05/03/17 at 23: 39 Morphine Sulfate (morphine) 3 mg Q4H PRN IV pain Last administered on 08:11; Admin Dose 3 MG; Start 05/02/17 at 22:30 Acetaminophen/ Hydrocodone Bitart ([place] (7.5-325)) 1 tab Q6H PRN PO breakthrough pain Last administered on 05/03/17 03:57; Admin Dose 1 TAB; Start 05/02/17 at 22:30 Docusate Sodium (Colace) 100 mg BID PO Last administered on 05/03/17 08:10; Admin Dose 100 MG; Start 05/03/17 at 09:00 Famotidine (Pepcid) 20 mg BID PO Last administered on 05/03/17 08:10; Admin Dose 20 MG; Start 05/03/17 at 09:00 Enoxaparin Sodium (Lovenox) 40 mg DAILY SC Last administered on 05/03/17 08:24 ; Admin Dose 40 MG; Start 05/03/17 at 09:00 Ondansetron HCl (Zofran Inj) 4 mg Q6H PRN IV NAUSEA AND/OR VOMITING; Start at 22:30 VIVI CARLSON MD May 03, 2017 12:02
--- NOTE | 2017-05-03 12:38 | PN ---
Date/Time of Note Date/Time of Note DATE: 05/03/17 TIME: 12:36 Assessment/Plan VTE Prophylaxis VTE Prophylaxis Intervention: LMWH Lines/Catheters IV Catheter Type (from [facility]): Peripheral IV Assessment/Plan Chief Complaint/Hosp Course 1. Status post mechanical fall with left knee edema and pain. Left knee x-ray showing "supracondylar fracture demonstrating a healing response with exuberant callus. Vertical radiolucency in the proximal tibia is concerning for an acute fracture. Moderate joint effusion and periarticular soft tissue swelling is concerning for a septic joint." Continue pain control. On antibiotics for any underlying septic arthritis. Orthopedic surgery has been consulted. 2. Anemia. Most probably anemia of chronic disease. The patient's H and H will be monitored closely. 3. Dyslipidemia. Elevated total cholesterol from her previous admission. Low cholesterol diet will be advised. 4. Vitamin D deficiency. The patient will be maintained on vitamin D supplements. 5. Poliomyelitis as a child with chronic left lower extremity weakness. The patient will be provided with supportive care. 6. Nicotine use. The patient currently on a nicotine patch. Cessation will be advised. 7. Fluid, electrolytes and nutrition. Low cholesterol diet. 8. Deep vein thrombosis prophylaxis. Subcutaneous Lovenox. 9. Gastrointestinal prophylaxis. Histamine 2 receptor blockers. PLAN: 1. Await orthopedic surgery evaluation. Continue pain control. The case was discussed with Dr. Willard Problems: Subjective 24 Hr Interval Summary Free Text/Dictation Complains of severe left knee pain. Exam/Review of Systems Vital Signs Vitals Vital Signs Date Time Temp Pulse Resp B/P Pulse Ox O2 Delivery O2 Flow Rate FiO2 05/03/17 07:27 98.1 86 18 172/79 95 05/02/17 22:15 Room Air Intake and Output 05/02/17 05/02/17 05/03/17 15:00 23:00 07:00 Intake Total 1025 ml Balance 1025 ml Exam GENERAL: This is a 57-year-old female patient lying in bed in no apparent distress. HEENT: Head normocephalic and atraumatic. Eyes: Anicteric sclerae. Conjunctivae clear. ENT: Nasal septum is midline. Oral mucosa is moist. NECK: Supple. No JVD noticed. RESPIRATORY: Bilaterally clear to auscultation. No adventitious breath sounds heard. No use of accessory muscles of respiration. CARDIAC: Regular rate and rhythm. S1 and S2 heard. ABDOMEN: Soft, nontender and nondistended. Bowel sounds positive in all 4 quadrants. GENITOURINARY: Deferred. EXTREMITIES: No cyanosis, no clubbing. Left lower extremity shorter than right. Left knee erythema and tenderness. Peripheral pulses palpable. NEUROLOGIC: The patient is awake, alert and oriented. Cranial nerves are grossly intact. Results Result Diagram: 05/03/17 0500 05/03/17 0500 Results 24 hrs Laboratory Tests Test 05/02/17 16:34 05/02/17 20:20 05/02/17 22:10 05/03/17 05:00 White Blood Count 10.8 # 8.7 Red Blood Count 3.96 #L 3.53 L Hemoglobin 12.9 # 11.5 L Hematocrit 36.5 #L 32.9 L Mean Corpuscular Volume 92.2 93.2 Mean Corpuscular Hemoglobin 32.6 32.6 Mean Corpuscular Hemoglobin Concent 35.3 35.0 Red Cell Distribution Width 13.6 13.7 Platelet Count 379 360 Mean Platelet Volume 7.9 8.7 Neutrophils % 71.4 62.2 Lymphocytes % 22.4 26.8 Monocytes % 5.3 8.6 Eosinophils % 0.1 1.4 Basophils % 0.5 0.7 Nucleated Red Blood Cells % 0.0 0.0 Neutrophils # (Manual) 8 H 5 Lymphocytes # 2.4 2.3 Monocytes # 0.6 0.8 Eosinophils # 0.0 0.1 Basophils # 0.1 0.1 Nucleated Red Blood Cells # 0.0 0.0 Erythrocyte Sedimentation Rate 20 Prothrombin Time 11.7 L Prothrombin Time Ratio 0.9 INR International Normalized Ratio 0.86 Activated Partial Thromboplast Time 38.3 H Sodium Level 128 L 134 L Potassium Level 4.1 3.7 Chloride Level 89 L 98 Carbon Dioxide Level 22 24 Anion Gap 21 H 16 Blood Urea Nitrogen 4 L 3 L Creatinine 0.53 0.47 Glucose Level 82 72 Lactic Acid Level 4.0 *H 2.4 *H 2.0 1.2 Calcium Level 9.3 8.8 Total Bilirubin 0.3 Direct Bilirubin 0.00 Indirect Bilirubin 0.3 Aspartate Amino Transf (AST/SGOT) 45 Alanine Aminotransferase (ALT/SGPT) 42 Alkaline Phosphatase 122 H C-Reactive Protein 1.4 H Total Protein 9.1 H Albumin 5.1 H Globulin 4.00 H Albumin/Globulin Ratio 1.27 Magnesium Level 1.6 L Medications Medications Current Medications Diphenhydramine HCl 25 mg 25 mg Q6H PRN PO ALLERGIC REACTION; Start 05/02/17 at 22:30 Sodium Chloride (NS) 1,000 ml @ 125 mls/hr Q8H IV Last administered on 10:19; Admin Dose 125 MLS/HR; Start 05/03/17 at 07:40; Stop 05/03/17 at 23: 39 Morphine Sulfate (morphine) 3 mg Q4H PRN IV pain Last administered on 08:11; Admin Dose 3 MG; Start 05/02/17 at 22:30 Acetaminophen/ Hydrocodone Bitart ([place] (7.5-325)) 1 tab Q6H PRN PO breakthrough pain Last administered on 05/03/17 03:57; Admin Dose 1 TAB; Start 05/02/17 at 22:30 Docusate Sodium (Colace) 100 mg BID PO Last administered on 05/03/17 08:10; Admin Dose 100 MG; Start 05/03/17 at 09:00 Famotidine (Pepcid) 20 mg BID PO Last administered on 05/03/17 08:10; Admin Dose 20 MG; Start 05/03/17 at 09:00 Enoxaparin Sodium (Lovenox) 40 mg DAILY SC Last administered on 05/03/17 08:24 ; Admin Dose 40 MG; Start 05/03/17 at 09:00 Ondansetron HCl (Zofran Inj) 4 mg Q6H PRN IV NAUSEA AND/OR VOMITING; Start at 22:30 TORRIE HARDY NP May 03, 2017 12:38 TORRIE HARDY NP May 03, 2017 12:38
[2017-05-03] MEDS ORDERED: MAGNESIUM SULFATE 2 GM/50 ML 50 ML IVPB ONE (13:00)
[2017-05-03 14:30] VITALS: BP 156/70; RESP 18
[2017-05-03] MEDS: CHOLECALCIFEROL 1,000 UNIT TAB PO SCH (15:54)
[2017-05-03] MEDS: NICOTINE (14 MG/24 HR) PATCH TRANSDERM SCH (15:54)
[2017-05-03 16:21] VITALS: BP 162/99; RESP 18
[2017-05-03 19:00] VITALS: BP 154/81; RESP 18
--- NOTE | 2017-05-03 19:16 | RADRPT ---
PROCEDURE: CT of the left lower extremity CLINICAL INDICATION: Left lower extremity pain, fall, history of recent femoral repair TECHNIQUE: Axial images through the left lower extremity without IV contrast. Coronal and sagitt al reformats. Images were interpreted at an independent PACS workstation. CTDI 54.76 mGy DLP 2891 0.72 mGy-cm One or more of the following dose reduction techniques were used: Automated exposure control Adjustment of the mA and / or kV according to patient size Use of iterative reconstruction technique. COMPARISON: Radiographs of the left lower extremity May 02, 2017, March 01, [address] of the l eft lower extremity dated February 27, 2017 FINDINGS: There is a long lateral plate and screw fixation across a comminuted distal femur fracture that demo nstrates intra-articular extension at the intercondylar notch. The distal most screw may be slightl y proud compared to the previous study. There is surrounding premature bone formation and callus (a xial 155 and coronal 73) though the fracture line is clearly evident. There is still slight impacti on at the dominant fracture line with slight posterior cortical offset of approximately 5 mm. Note i s made that the most posterior of the lateral femoral condyle screws does not traverse the medial fe moral condyle with the tip near the semimembranosus tendon. There is also a nondisplaced fracture of the proximal tibia (coronal 1 L 4), which was also suggeste d on the recently performed radiographs. This is at the metaphysis. There is significant backgroun d osteopenia. There is no additional new fracture identified. There is nonspecific small to moderate sized knee joint effusion and there is nonspecific diffuse nuñez bcutaneous soft tissue swelling. There is severe atrophy of the quadriceps musculature. The bladder is markedly distended. IMPRESSION: 1. Lateral plate and screw fixation of a subacute impacted distal femur fracture as above noting ap proximately 5 mm of persistent posterior cortical offset. 2. Acute nondisplaced proximal tibial metaphysis fracture. 3. Background osteopenia. 4. Small nonspecific knee joint effusion and mild nonspecific subcutaneous soft tissue swelling. 5. Severe quadriceps muscle atrophy. 6. Markedly distended bladder. RPTAT: UU .Silas Junior MD, MD Date Time Electronically viewed and signed by .Silas Junior MD, MD on 05/03/2017 19:15 .K/
[2017-05-03 22:34] LABS: ADD UMIC YES; UR ASCORBIC ACID NEGATIVE (NEGATIVE); UR BACTERIA FEW /HPF (NONE SEEN); UR BILIRUBIN (Dip) NEGATIVE (NEGATIVE); UR BLOOD (Dip) 2+ mg/dL (NEGATIVE); UR CLARITY CLEAR (CLEAR); UR COLOR STRAW (YELLOW); UR GLUCOSE (Dip) NEGATIVE (NEGATIVE); UR KETONES (Dip) 1+ mg/dL (NEGATIVE); UR LEUKOCYTE ESTERASE (Dip) NEGATIVE Leu/ul (NEGATIVE); UR NITRITE (Dip) NEGATIVE (NEGATIVE); UR RBC 12 /HPF (0-5); UR SPECIFIC GRAVITY (Dip) 1.004 (1.003-1.030); UR TOTAL PROTEIN (Dip) NEGATIVE (NEGATIVE); UR UROBILINOGEN (Dip) NEGATIVE (NEGATIVE)
--- NOTE | 2017-05-04 02:38 | CONS ---
DATE OF ADMISSION: 05/02/2017 DATE OF CONSULTATION: 05/03/2017 REASON FOR CONSULTATION: Antibiotic management. HISTORY OF PRESENT ILLNESS: Delia Fraga is a 57-year-old female who presents status post accidental fall. The patient was discharged from [facility] in February after she had sustained a fracture of the distal metaphysis of the left femur and underwent open reduction, internal fixation on March 01. Her second problem is that of a history of polio as a child with chronic lower extremity weakness. The patient was mopping the floor yesterday and sustained another accidental fall. She had discomfort in the left knee and lower leg, but she was able to move herself into her wheelchair. She has been having intermittent pain, and the pain worsened until it became 10/10 when she came to the emergency room early this evening. Imaging of the knee is concerning for possible screw displacement, persistent fracture line in her previous supracondylar fracture and now concern for an acute fracture in the proximal tibia. There was some moderate joint effusion and periarticular soft tissue swelling that is consistent with septic joint. Imaging was negative, however, for soft tissue gas, and the radiologist recommended a diagnostic joint aspiration. She is admitted for orthopedic review and on admission was in quite a bit of pain. PAST MEDICAL HISTORY: Include as noted, fracture of the distal metaphysis of the left femur, history of poliomyelitis with chronic lower extremity weakness, anemia secondary to alcohol abuse, hypercholesterolemia. She had an open reduction, internal fixation on March 01, 2017, and she has a history of a . FAMILY HISTORY: Noncontributory. SOCIAL HISTORY: She is an everyday smoker, 1/3 pack per day. She drinks 2 drinks per night. ALLERGIES: NONE TO PENICILLIN, SULFA, OR FOODS. MEDICATION: Per chart. REVIEW OF SYSTEMS: As per HPI. On admission, her white count was 10.8, H and H of 12.9, 36.5, platelet count 379. BUN and creatinine 44/0.53. A chest x-ray showed nonspecific mild opacity at the left lung base, which may represent atelectasis or early infiltrate. Her white count today is 8.7. BUN and creatinine is 31/0.47. She had a lactic acid of 4.0, and at present, I do not see that she has had her joint aspirated as yet. PHYSICAL EXAMINATION: GENERAL: Patient is wgglyjrbctj-ejd-oeznzcrrl female who is alert, responsive, in no acute distress. She is complaining of pain in her knee. VITAL SIGNS: Stable. She is afebrile. SKIN: Without generalized rash. HEENT: Within normal limits. NECK: Supple. Lymph nodes are nonpalpable. CHEST: Decreased breath sounds at the bases. HEART: Without murmur or gallop. ABDOMEN: Soft and nontender without organosplenomegaly or masses. EXTREMITIES: She has left lower extremity swelling and pitting edema to the calf. Tenderness of the left knee with limited range of motion. Surgical site is clean. IMPRESSION AND PLAN: We may be dealing with a septic joint status post fall. The patient was started on vancomycin and cefepime. I would like to see a joint aspiration from the orthopedist. I will dictate my findings to the hospitalist. Dictated By: Andrey Lomax MD JD/danielle/yovani /Document#: [id number]
[2017-05-04 02:46] VITALS: BP 130/67; RESP 20
--- NOTE | 2017-05-04 03:32 | CONS ---
DATE OF ADMISSION: 05/02/2017 DATE OF CONSULTATION: 05/03/2017 HISTORY OF PRESENT ILLNESS: The patient is a 57-year-old female, who was admitted through the emergency room on May 02, 2017, when she came to emergency room complaining of pain and swelling involving her lower extremity. She had an open reduction, internal fixation of the supracondylar fracture of the left femur on February 28, 2017. Her postop course has been satisfactory up to about a month ago when she was seen by me in my office without any unusual problems. She obviously had a ground level fall, twisting her left lower extremity about 2 days prior to her admission and came to the emergency room. My examination revealed a 57-year-old female, who is not in any acute distress. She was complaining of pain involving her the left leg. There were no signs of acute fracture or dislocations. There were minimal swellings. There was residual swelling and increased warmth around the left thigh; however, this was nothing unusual considering the history of her previous injury and surgery about 2 months ago. X-rays of the left femur and the left knee were in acceptable alignment with the fracture and fixation device in proper position and alignment. She has been afebrile and there has not been in leukocytosis. IMPRESSION: Possible sprain involving her left leg. No signs of infection and no signs of recurrent fracture or dislocation. PLAN: She can turn around as tolerates with weightbearing as tolerates. She could be discharged if she can tolerate the ambulation with Physical Therapy. Dictated By: Don Cook MD /danielle/leelee /Document#: [id number]
[2017-05-04 05:26] LABS: BASOPHILS % 0.6 % (0.0-2.0); EOSINOPHILS # 0.2 10^3/ul (0.0-0.5); EOSINOPHILS % 3.6 % (0.0-7.0); HEMATOCRIT 30.6 % (37.0-47.0); HEMOGLOBIN 10.5 g/dl (12.0-16.0); LYMPHOCYTES # 1.9 10^3/ul (0.8-2.9); LYMPHOCYTES % 30.3 % (15.0-51.0); MEAN CORPUSCULAR HEMOGLOBIN 32.4 pg (29.0-33.0); MEAN CORPUSCULAR HGB CONC 34.3 g/dl (32.0-37.0); MEAN CORPUSCULAR VOLUME 94.4 fl (82.0-101.0); MEAN PLATELET VOLUME 8.8 fl (7.4-10.4); MONOCYTE # 0.5 10^3/ul (0.3-0.9); MONOCYTES % 8.2 % (0.0-11.0); PLATELET COUNT 288 10^3/UL (140-415); RED BLOOD COUNT 3.24 10^6/ul (4.20-5.40); RED CELL DISTRIBUTION WIDTH 13.9 % (11.5-14.5); WHITE BLOOD COUNT 6.4 10^3/ul (4.8-10.8)
[2017-05-04 06:12] LABS: MAGNESIUM 1.7 mg/dl (1.7-2.5); PHOSPHORUS 2.4 mg/dl (2.5-4.9)
[2017-05-04 06:36] LABS: CALCIUM 8.8 mg/dl (8.4-10.2); CREATININE 0.45 mg/dl (0.44-1.00); POTASSIUM 4.1 mmol/L (3.5-5.1)
[2017-05-04 08:12] VITALS: BP 133/83; RESP 18
[2017-05-04] MEDS: NICOTINE (14 MG/24 HR) PATCH TRANSDERM SCH (08:24)
[2017-05-04] MEDS: FAMOTIDINE 20 MG TAB PO SCH ×2 (08:24→20:48)
[2017-05-04] MEDS: DOCUSATE SODIUM 100 MG CAP PO SCH ×2 (08:24→20:48)
[2017-05-04] MEDS: CHOLECALCIFEROL 1,000 UNIT TAB PO SCH (08:24)
[2017-05-04] MEDS: morphine 4 MG/ML VIAL IV PRN (08:27)
[2017-05-04] MEDS: ENOXAPARIN 40 MG/0.4 ML SYG SC SCH (08:46)
--- NOTE | 2017-05-04 09:44 | PN ---
Date/Time of Note Date/Time of Note DATE: 05/04/17 TIME: 09:43 Assessment/Plan VTE Prophylaxis VTE Prophylaxis Intervention: LMWH Lines/Catheters IV [facility]from [facility]): Peripheral IV Assessment/Plan Chief Complaint/Hosp Course 1. Status post mechanical fall with left knee edema and pain. Left knee x-ray showing "supracondylar fracture demonstrating a healing response with exuberant callus. Vertical radiolucency in the proximal tibia is concerning for an acute fracture. Moderate joint effusion and periarticular soft tissue swelling is concerning for a septic joint." Continue pain control. On antibiotics for any underlying septic arthritis. Orthopedic surgery following. 2. Anemia. Most probably anemia of chronic disease. The patient's H and H will be monitored closely. 3. Dyslipidemia. Elevated total cholesterol from her previous admission. Low cholesterol diet will be advised. 4. Vitamin D deficiency. The patient will be maintained on vitamin D supplements. 5. Poliomyelitis as a child with chronic left lower extremity weakness. The patient will be provided with supportive care. 6. Nicotine use. The patient currently on a nicotine patch. Cessation will be advised. 7. Fluid, electrolytes and nutrition. Low cholesterol diet. 8. Deep vein thrombosis prophylaxis. Subcutaneous Lovenox. 9. Gastrointestinal prophylaxis. Histamine 2 receptor blockers. PLAN: 1. Continue pain control. Await further orthopedic surgery recommendations. The case was discussed with Dr. Willard Problems: Subjective 24 Hr Interval Summary Free Text/Dictation Left knee pain better. Exam/Review of Systems Vital Signs Vitals Vital Signs Date Time Temp Pulse Resp B/P Pulse Ox O2 Delivery O2 Flow Rate FiO2 05/04/17 08:12 98.2 79 18 133/83 99 05/02/17 22:15 Room Air Intake and Output 05/03/17 05/03/17 05/04/17 15:00 23:00 07:00 Intake Total 375 ml 1570 ml 1750 ml Balance 375 ml 1570 ml 1750 ml Exam GENERAL: This is a 57-year-old female patient lying in bed in no apparent distress. HEENT: Head normocephalic and atraumatic. Eyes: Anicteric sclerae. Conjunctivae clear. ENT: Nasal septum is midline. Oral mucosa is moist. NECK: Supple. No JVD noticed. RESPIRATORY: Bilaterally clear to auscultation. No adventitious breath sounds heard. No use of accessory muscles of respiration. CARDIAC: Regular rate and rhythm. S1 and S2 heard. ABDOMEN: Soft, nontender and nondistended. Bowel sounds positive in all 4 quadrants. GENITOURINARY: Deferred. EXTREMITIES: No cyanosis, no clubbing. Left lower extremity shorter than right. Left knee erythema and tenderness. Peripheral pulses palpable. NEUROLOGIC: The patient is awake, alert and oriented. Cranial nerves are grossly intact. Results Result Diagram: 05/04/17 0426 05/04/17 0426 Results 24 hrs Laboratory Tests Test 05/03/17 22:15 05/04/17 04:26 Urine Color STRAW Urine Clarity CLEAR Urine pH 6.0 Urine Specific [place] 1.004 Urine Ketones 1+ H Urine Nitrite NEGATIVE Urine Bilirubin NEGATIVE Urine Urobilinogen NEGATIVE Urine Leukocyte Esterase NEGATIVE Urine Microscopic RBC 12 H Urine Microscopic WBC 2 Urine Bacteria FEW A Urine Hemoglobin 2+ H Urine Glucose NEGATIVE Urine Total Protein NEGATIVE White Blood Count 6.4 # Red Blood Count 3.24 L Hemoglobin 10.5 L Hematocrit 30.6 L Mean Corpuscular Volume 94.4 Mean Corpuscular Hemoglobin 32.4 Mean Corpuscular Hemoglobin Concent 34.3 Red Cell Distribution Width 13.9 Platelet Count 288 Mean Platelet Volume 8.8 Neutrophils % 57.0 Lymphocytes % 30.3 Monocytes % 8.2 Eosinophils % 3.6 Basophils % 0.6 Nucleated Red Blood Cells % 0.0 Neutrophils # (Manual) 4 Lymphocytes # 1.9 Monocytes # 0.5 Eosinophils # 0.2 Basophils # 0.0 Nucleated Red Blood Cells # 0.0 Sodium Level 131 L Potassium Level 4.1 Chloride Level 95 L Carbon Dioxide Level 29 Anion Gap 11 Blood Urea Nitrogen 3 L Creatinine 0.45 Glucose Level 73 Calcium Level 8.8 Phosphorus Level 2.4 L Magnesium Level 1.7 Medications Medications Current Medications Diphenhydramine HCl (Benadryl) 25 mg Q6H PRN PO ALLERGIC REACTION; Start at 22:30 Morphine Sulfate (morphine) 3 mg Q4H PRN IV pain Last administered on 08:27; Admin Dose 3 MG; Start 05/02/17 at 22:30 Acetaminophen/ Hydrocodone Bitart ([place] (7.5-325)) 1 tab Q6H PRN PO breakthrough pain Last administered on 05/03/17 03:57; Admin Dose 1 TAB; Start 05/02/17 at 22:30 Docusate Sodium (Colace) 100 mg BID PO Last administered on 05/04/17 08:24; Admin Dose 100 MG; Start 05/03/17 at 09:00 Famotidine (Pepcid) 20 mg BID PO Last administered on 05/04/17 08:24; Admin Dose 20 MG; Start 05/03/17 at 09:00 Enoxaparin Sodium (Lovenox) 40 mg DAILY SC Last administered on 05/04/17 08:46 ; Admin Dose 40 MG; Start 05/03/17 at 09:00 Ondansetron HCl (Zofran Inj) 4 mg Q6H PRN IV NAUSEA AND/OR VOMITING; Start at 22:30 Cholecalciferol (Vitamin D) 1,000 unit DAILY PO Last administered on 05/04/17 08:24; Admin Dose 1,000 UNIT; Start 05/03/17 at 14:00 Nicotine (Nicoderm 14 Mg/ 24hr) 1 patch DAILY TRANSDERM Last administered on 08:24; Admin Dose 1 PATCH; Start 05/03/17 at 14:00 TORRIE HARDY NP May 04, 2017 09:44 TORRIE HARDY NP May 04, 2017 09:44
[2017-05-04 14:04] VITALS: BP 129/66; RESP 18
[2017-05-04 14:19] VITALS: BP 140/82; RESP 18
--- NOTE | 2017-05-04 16:08 | PN ---
DATE: 05/04/2017 SUBJECTIVE DATA: No events overnight. The patient is alert, looks comfortable. Complaining of left lower extremity pain. No fevers. No distress. LABORATORY AND DIAGNOSTIC DATA: WBC 6.4, no shift, no bands. BUN 3, creatinine 0.45. Blood cultures remain negative. CT of the lower extremity revealed lateral plate and screw fixation of subacute impacted distal femoral fracture as above. Acute nondisplaced proximal tibial metaphysis fracture, background osteopenia. Small nonspecific knee joint effusion and mild nonspecific subcutaneous soft tissue swelling, severe quadriceps muscle dystrophy, markedly distended bladder. PHYSICAL EXAMINATION: GENERAL: This is a well-developed, middle-aged woman, who is alert, in no distress. HEENT: Head atraumatic, normocephalic. Sclerae anicteric. Buccal mucosa pink. NECK: Supple. CHEST: Rise symmetrical. Breath sounds clear. HEART: S1, S2. ABDOMEN: Soft, bowel sounds present. EXTREMITIES: Without cyanosis. Left lower extremity with some bruising around the knee. ASSESSMENT: 1. Left lower extremity sprain, no sign of infection and no signs of recurrence fracture or dislocation as per ortho note. 2. Status post open reduction and internal fixation of left femoral fracture on 02/28/[address] Cook. 3. Distended bladder as per CT on admission. Per nursing notes patient is voiding without difficulty. PLAN: Patient is off antibiotics. Again, ortho seeing her and there is no acute infectious process as per ortho note. Patient is clinically stable, nontoxic and afebrile, we will keep her off antibiotics. Dictated By: Xochitl Sarmiento NP /danielle/veronica /Document#: [id number]
[2017-05-04 19:00] VITALS: BP 151/82; RESP 18
[2017-05-04 19:30] VITALS: BP 127/63; PULSE 92; RESP 18
--- NOTE | 2017-05-04 20:28 | PN ---
DATE: There is CT scan of the right lower extremity, revealed the presence of fracture involving the proximal diaphysis of the tibia extending up to the tibial plateau. The overall alignment of the fracture is satisfactory without any displacement. Treatment plan is immobilization of the left lower extremity in a long-arm brace with a dialogue at the knee joint. She can be up and around with a walker with absolutely no weightbearing on the left lower extremity. The patient has a previous long leg brace with a dialogue at the knee joint at home and her family members bring in the brace in order to immobilize her left lower extremity in the brace. Dictated By: In Sunshine Cook MD /danielle/shayna /Document#: [id number]
[2017-05-04] MEDS: HYDROCODONE/APAP (7.5/325) TAB PO PRN (20:52)
[2017-05-05 02:00] VITALS: BP 134/78; RESP 18
[2017-05-05] MEDS: morphine 4 MG/ML VIAL IV PRN (02:38)
[2017-05-05 05:37] LABS: BASOPHIL # 0.1 10^3/ul (0.0-0.1); EOSINOPHILS # 0.3 10^3/ul (0.0-0.5); EOSINOPHILS % 5.8 % (0.0-7.0); LYMPHOCYTES # 1.7 10^3/ul (0.8-2.9); LYMPHOCYTES % 32.6 % (15.0-51.0); MEAN CORPUSCULAR HEMOGLOBIN 32.1 pg (29.0-33.0); MEAN CORPUSCULAR HGB CONC 34.4 g/dl (32.0-37.0); MEAN CORPUSCULAR VOLUME 93.3 fl (82.0-101.0); MEAN PLATELET VOLUME 8.8 fl (7.4-10.4); MONOCYTE # 0.4 10^3/ul (0.3-0.9); MONOCYTES % 7.1 % (0.0-11.0); NEUTROPHILS % 53.3 % (39.0-77.0); PLATELET COUNT 290 10^3/UL (140-415); RED BLOOD COUNT 3.43 10^6/ul (4.20-5.40); RED CELL DISTRIBUTION WIDTH 13.7 % (11.5-14.5); WHITE BLOOD COUNT 5.2 10^3/ul (4.8-10.8)
[2017-05-05 05:45] LABS: MAGNESIUM 1.5 mg/dl (1.7-2.5); PHOSPHORUS 2.9 mg/dl (2.5-4.9)
[2017-05-05 06:08] LABS: CALCIUM 9.2 mg/dl (8.4-10.2); CREATININE 0.45 mg/dl (0.44-1.00)
[2017-05-05 06:40] LABS: POTASSIUM 2.9 mmol/L (3.5-5.1)
[2017-05-05] MEDS ORDERED: MAGNESIUM SULFATE 2 GM/50 ML 50 ML IVPB ONE (07:15)
[2017-05-05] MEDS ORDERED: POTASSIUM CHLORIDE 250 ML IVPB ONE (07:15)
[2017-05-05] MEDS ORDERED: POTASSIUM CHLORIDE (SR) 20 MEQ TAB PO ONE (07:15)
[2017-05-05 07:25] VITALS: BP 139/81; RESP 18
[2017-05-05] MEDS: FAMOTIDINE 20 MG TAB PO SCH ×2 (08:21→21:00)
[2017-05-05] MEDS: DOCUSATE SODIUM 100 MG CAP PO SCH ×2 (08:21→21:00)
[2017-05-05] MEDS: CHOLECALCIFEROL 1,000 UNIT TAB PO SCH (08:21)
[2017-05-05] MEDS: NICOTINE (14 MG/24 HR) PATCH TRANSDERM SCH (08:21)
[2017-05-05] MEDS: ENOXAPARIN 40 MG/0.4 ML SYG SC SCH (08:25)
[2017-05-05] MEDS: HYDROCODONE/APAP (7.5/325) TAB PO PRN ×2 (08:29→16:45)
--- NOTE | 2017-05-05 13:22 | PN ---
Date/Time of Note Date/Time of Note DATE: 05/05/17 TIME: 13:20 Assessment/Plan VTE Prophylaxis VTE Prophylaxis Intervention: LMWH Lines/Catheters IV [facility] Type (from [facility]): [place] Urinary Cath still in place: No Assessment/Plan Chief Complaint/Hosp Course 1. Status post mechanical fall with left knee edema and pain. Left knee x-ray showing "supracondylar fracture demonstrating a healing response with exuberant callus. Vertical radiolucency in the proximal tibia is concerning for an acute fracture. Moderate joint effusion and periarticular soft tissue swelling is concerning for a septic joint." Left lower extremity CT scan showed lateral plate and screw fixation of a subacute impacted distal femur fracture as above noting approximately 5 mm of persistent posterior cortical offset along with an acute nondisplaced proximal tibial metaphysis fracture. Being followed by orthopedic surgery. Immobilization of the left lower extremity and nonweightbearing of the left lower extremity. 2. Anemia. Most probably anemia of chronic disease. The patient's H and H will be monitored closely. 3. Dyslipidemia. Elevated total cholesterol from her previous admission. Low cholesterol diet will be advised. 4. Vitamin D deficiency. The patient will be maintained on vitamin D supplements. 5. Poliomyelitis as a child with chronic left lower extremity weakness. The patient will be provided with supportive care. 6. Nicotine use. The patient currently on a nicotine patch. Cessation will be advised. 7. Fluid, electrolytes and nutrition. Low cholesterol diet. 8. Deep vein thrombosis prophylaxis. Subcutaneous Lovenox. 9. Gastrointestinal prophylaxis. Histamine 2 receptor blockers. PLAN: 1. Continue pain control. Replete potassium and magnesium. Continue physical therapy. Patient requesting acute rehabilitation. The case was discussed with Dr. Willard Problems: Subjective 24 Hr Interval Summary Free Text/Dictation Left lower extremity immobilized. Exam/Review of Systems Vital Signs Vitals Vital Signs Date Time Temp Pulse Resp B/P Pulse Ox O2 Delivery O2 Flow Rate FiO2 05/05/17 07:25 98.4 79 18 139/81 97 05/04/17 19:30 Room Air Intake and Output 05/04/17 05/04/17 05/05/17 15:00 23:00 07:00 Intake Total 1040 ml 960 ml Balance 1040 ml 960 ml Exam GENERAL: This is a 57-year-old female patient lying in bed in no apparent distress. HEENT: Head normocephalic and atraumatic. Eyes: Anicteric sclerae. Conjunctivae clear. ENT: Nasal septum is midline. Oral mucosa is moist. NECK: Supple. No JVD noticed. RESPIRATORY: Bilaterally clear to auscultation. No adventitious breath sounds heard. No use of accessory muscles of respiration. CARDIAC: Regular rate and rhythm. S1 and S2 heard. ABDOMEN: Soft, nontender and nondistended. Bowel sounds positive in all 4 quadrants. GENITOURINARY: Deferred. EXTREMITIES: No cyanosis, no clubbing. Left lower extremity shorter than right. Left knee erythema and tenderness. Peripheral pulses palpable. NEUROLOGIC: The patient is awake, alert and oriented. Cranial nerves are grossly intact. Results Result Diagram: 05/05/17 0438 05/05/17 0438 Results 24 hrs Laboratory Tests Test 05/05/17 04:38 White Blood Count 5.2 Red Blood Count 3.43 L Hemoglobin 11.0 L Hematocrit 32.0 L Mean Corpuscular Volume 93.3 Mean Corpuscular Hemoglobin 32.1 Mean Corpuscular Hemoglobin Concent 34.4 Red Cell Distribution Width 13.7 Platelet Count 290 Mean Platelet Volume 8.8 Neutrophils % 53.3 Lymphocytes % 32.6 Monocytes % 7.1 Eosinophils % 5.8 Basophils % 1.0 Nucleated Red Blood Cells % 0.0 Neutrophils # (Manual) 3 Lymphocytes # 1.7 Monocytes # 0.4 Eosinophils # 0.3 Basophils # 0.1 Nucleated Red Blood Cells # 0.0 Sodium Level 136 Potassium Level 2.9 *L Chloride Level 93 L Carbon Dioxide Level 33 H Anion Gap 13 Blood Urea Nitrogen 3 L Creatinine 0.45 Glucose Level 93 Calcium Level 9.2 Phosphorus Level 2.9 Magnesium Level 1.5 L Medications Medications Current Medications Diphenhydramine HCl (Benadryl) 25 mg Q6H PRN PO ALLERGIC REACTION; Start at 22:30 Morphine Sulfate (morphine) 3 mg Q4H PRN IV pain Last administered on 02:38; Admin Dose 3 MG; Start 05/02/17 at 22:30 Acetaminophen/ Hydrocodone Bitart ([place] (7.5-325)) 1 tab Q6H PRN PO breakthrough pain Last administered on 05/05/17 08:29; Admin Dose 1 TAB; Start 05/02/17 at 22:30 Docusate Sodium (Colace) 100 mg BID PO Last administered on 05/05/17 08:21; Admin Dose 100 MG; Start 05/03/17 at 09:00 Famotidine (Pepcid) 20 mg BID PO Last administered on 05/05/17 08:21; Admin Dose 20 MG; Start 05/03/17 at 09:00 Enoxaparin Sodium (Lovenox) 40 mg DAILY SC Last administered on 05/05/17 08:25 ; Admin Dose 40 MG; Start 05/03/17 at 09:00 Ondansetron HCl (Zofran Inj) 4 mg Q6H PRN IV NAUSEA AND/OR VOMITING; Start at 22:30 Cholecalciferol (Vitamin D) 1,000 unit DAILY PO Last administered on 05/05/17 08:21; Admin Dose 1,000 UNIT; Start 05/03/17 at 14:00 Nicotine (Nicoderm 14 Mg/ 24hr) 1 patch DAILY TRANSDERM Last administered on 08:21; Admin Dose 1 PATCH; Start 05/03/17 at 14:00 TORRIE HARDY NP May 05, 2017 13:21
[2017-05-05 14:00] VITALS: BP 127/93; RESP 19
--- NOTE | 2017-05-05 15:11 | RADRPT ---
PROCEDURE: XR Tibia and Fibula. CLINICAL INDICATION: Followup tibial fracture. TECHNIQUE: Two views of the left tibia and fibula are available for review. COMPARISON: 02/27/2017. FINDINGS: No tibial or fibular fracture identified. Patient is status post ORIF of a distal femoral fracture by means of a femoral side plate and multiple screws. No evidence for hardware migration or fractur e within the field of view. IMPRESSION: 1. No tibial or fibular fracture is identified. 2. Appropriate appearance status post ORIF of a distal femoral fracture. RPTAT: XX .Bradly Arciniega MD, Date Time Electronically viewed and signed by .Bradly Arciniega MD, on 05/05/2017 15:10 .T/
[2017-05-05 19:44] VITALS: BP 144/76; RESP 20
--- NOTE | 2017-05-05 21:11 | PDOCDIS ---
Discharge Instructions CONDITION Patient Condition: Stable HOME CARE INSTRUCTIONS: Special Diet: regular diet ACTIVITY: Activity Restrictions Comment: She can be up with absolutrly no weight bearing on Left lower extremity FOLLOW UP/APPOINTMENTS Follow-up Plan Call Dr nunez's office for followup Please follow up [facility] Dr Nunez for Orthopedics Name, Degree: Don Nunez MD Specialty: Orthopedic Surgery Comments: Office Address: [address] [place] [address] Office Office SUNIL OBRIEN May 05, 2017 21:11
--- NOTE | 2017-05-05 21:12 | PDOCDIS ---
Discharge Instructions CONDITION Patient Condition: Stable HOME CARE INSTRUCTIONS: Special Diet: regular diet ACTIVITY: Activity Restrictions Comment: She can be up with absolutrly no weight bearing on Left lower extremity OTHER ORDERS: Other Orders: Please stop smoking. If you have already stopped, Good for you!!!. It is however an ongoing process. If you need help or resources, please let someone know before you leave. We are here to help you. It has been associated with a lot of disease processes and is not favourable for healing. SUNIL OBRIEN May 05, 2017 21:12
--- NOTE | 2017-05-06 09:46 | DS ---
Date/Time of Note Date/Time of Note DATE: 05/06/17 TIME: 09:46 Discharge Summary Admission/Discharge Info Admit Date/Time Discharge Date/Time Home Meds Reported Medications Diphenhydramine Hcl* (Benadryl*) 25 Mg Cap, 25 MG PO Q6H Y for ALLERGIC REACTION , CAP 09/29/15 Primary Care Provider TORRIE HARDY NP May 06, 2017 09:46 concerning for a possible screw displacement, persistent fracture line in her previous supracondylar fracture, and now concern for acute fracture in the proximal tibia. Also there is some moderate joint effusion and periarticular soft tissue swelling that is concerning for septic joint. Imaging was negative however for soft tissue gas and radiologist recommended a diagnostic joint aspiration. She is being admitted for orthopedic review, further management. She is currently a lot of pain in her knee and her left calf and lower leg. Hospital Course 1. Status post mechanical fall with left knee edema and pain. Left knee x-ray showing "supracondylar fracture demonstrating a healing response with exuberant callus. Vertical radiolucency in the proximal tibia is concerning for an acute fracture. Moderate joint effusion and periarticular soft tissue swelling is concerning for a septic joint." Left lower extremity CT scan showed lateral plate and screw fixation of a subacute impacted distal femur fracture as above noting approximately 5 mm of persistent posterior cortical offset along with an acute nondisplaced proximal tibial metaphysis fracture. Being followed by orthopedic surgery. Mobilization of the left lower extremity and nonweightbearing of the left lower extremity. 2. Anemia. Most probably anemia of chronic disease. The patient's H and H will be monitored closely. 3. Dyslipidemia. Elevated total cholesterol from her previous admission. Low cholesterol diet will be advised. 4. Vitamin D deficiency. The patient will be maintained on vitamin D supplements. 5. Poliomyelitis as a child with chronic left lower extremity weakness. The patient will be provided with supportive care. 6. Nicotine use. The patient currently on a nicotine patch. Cessation will be advised. 7. Fluid, electrolytes and nutrition. Low cholesterol diet. 8. Deep vein thrombosis prophylaxis. Subcutaneous Lovenox. 9. Gastrointestinal prophylaxis. Histamine 2 receptor blockers. PLAN: 1. Continue pain control. Replete potassium and magnesium. Continue physical therapy. Patient requesting acute rehabilitation. The case was discussed with Dr. Willard Home Meds Reported Medications Diphenhydramine Hcl* (Benadryl*) 25 Mg Cap, 25 MG PO Q6H Y for ALLERGIC REACTION , CAP 09/29/15 Discontinued Scripts Cholecalciferol (Vitamin D3) (VITAMIN D-3) 2,000 Unit Capsule, 2000 UNIT PO DAILY for 30 Days, CAP 2 Refills Prov:SUNIL OBRIEN. 03/04/17 Docusate Sodium (Dok) 100 Mg Capsule, 100 MG PO Q12H for 14 Days, CAP Prov:SUNIL OBRIEN. 03/04/17 Lorazepam* (Lorazepam*) 1 Mg Tablet, 1 MG PO Q6H Y for AGITATION/ANXIETY, #14 TAB Prov:SUNIL OBRIEN . 03/04/17 Hydrocodone Bit-Acetaminophen (Hydrocodone Bit-APAP) 5-325MG Tablet, 1 TAB PO Q3H Y for PAIN, #21 TAB Prov:SUNIL OBRIEN. 03/04/17 [Nicotine (14 Mg/24 Hr)] 1 PATCH PATCH No Conflict Check, 1 PATCH TRANSDERM DAILY for 30 Days, 2 Refills Prov:SUNIL OBRIEN. 03/04/17 Naproxen* (Naproxen*) 500 Mg Tablet, 500 MG PO BID Y for PAIN, #20 TAB Prov:GIAN PARK DO 09/29/15 Primary Care Provider Humble Shafer Time spent on discharge: > 30 minutes TORRIE HARDY NP May 06, 2017 09:46
--- NOTE | 2017-05-06 15:04 | DS ---
DATE OF ADMISSION: 05/02/2017 DATE OF DISCHARGE: 05/05/2017 FINAL DIAGNOSES: 1. Acute nondisplaced proximal tibial metaphysis fracture, status post evaluation by orthopedic surgery. To treat with immobilization and nonweightbearing. 2. Anemia. 3. Dyslipidemia. 4. Vitamin D deficiency. 5. 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 6. Nicotine use. CONSULTANTS: 1. Andrey Lomax MD, Infectious Diseases. 2. Don Cook, Orthopedic Surgery. HOSPITAL COURSE: This is a 57-year-old female, who was discharged from this hospital in February 2017 after she had sustained a fracture of the distal metaphysis of the left femur and underwent open reduction, internal fixation. She has a history of polio as a child and has chronic left lower extremity weakness. The patient reports mopping the floor and sustained an accidental fall. She had some discomfort in her left knee and lower leg after the fall, but she was able to move herself up into her wheelchair. However, she has been having intermittent pain since the fall which has slowly gotten worse and became about 10/10. Imaging of the left knee was concerning for possible screw displacement and persistent fracture line in her previous supracondylar fracture and concern for a new acute fracture in the proximal tibia. Provided the patient's history of present illness, her comorbidities, and the diagnostic findings, a clinical decision was made to admit the patient to inpatient setting to have her further evaluated. The patient was admitted to inpatient medical surgical floor. The patient was kept on bed rest. An orthopedic surgery consult was obtained. The patient underwent a left lower extremity CT scan that showed acute nondisplaced proximal tibial metaphysis fracture. Orthopedic surgery recommended treatment with immobilization and nonweightbearing of the left lower extremity. No surgical intervention was indicated. The patient has underlying anemia. The patient most probably has anemia of chronic disease. The patient's H and H remained stable. The patient has underlying history of dyslipidemia. She was maintained on a low cholesterol diet. She has a history of vitamin D deficiency. She was maintained on vitamin D supplements for the same. As the patient is a current nicotine user, she was ordered the nicotine patch and she was advised on nicotine cessation. The patient was cleared by orthopedic surgery to be discharged home. Initially an infectious disease consult was called because there was concern for septic arthritis. However, after evaluation by orthopedic surgery it was confirmed that the patient has no evidence of any septic arthritis. FOLLOWUP: The patient was instructed to follow up with Dr. Cook as outpatient. The patient verbalized understanding of her discharge instructions. DISCHARGE CONDITION: Stable. DISCHARGE MEDICATIONS: None. PERTINENT LABORATORY AND DIAGNOSTIC DATA: 1. Latest CBC: WBC 5.2, hemoglobin 11.2, hematocrit 32.0, platelet count 290. 2. Latest BMP: Sodium 136, potassium 2.9, chloride 93, carbon dioxide 33, anion gap 13, BUN 3, creatinine 0.4, glucose 93, calcium 9.2, phosphorus 2.9, magnesium 1.5. 3. Left lower extremity CT scan: Acute nondisplaced proximal tibial metaphysis fracture. Small nonspecific knee joint effusion. Mild nonspecific subcutaneous soft tissue swelling. Lateral plate and screw fixation of a subacute impacted distal femur fracture. 4. Left lower extremity venous Doppler study: No sonographic evidence for DVT. DISCUSSION: At this time, I would like to thank all the consultants for seeing the patient and providing wound care recommendations. The case and management of this patient was thoroughly discussed with Dr. Willard. Approximately 35 minutes was spent on coordinating the discharge on this patient. Dictated By: Jorge Luis Sanches NP /danielle/veronica /Document#: [id number]
== END 2017-05-05 22:41 | disposition home or self-care (01) | DRG 563 ==
LOC: E/R 15:30 → MS1 19:15
PROVIDERS: ADMIT Internal Medicine; ATTEND Internal Medicine
DX: S82.192A Other fracture of upper end of left tibia, initial encounter for closed fracture (principal); M00.9 Pyogenic arthritis, unspecified; Y92.009 Unspecified place in unspecified non-institutional (private) residence as the place of occurrence of the external cause; Y93.E5 Activity, floor mopping and cleaning; W01.0XXA Fall on same level from slipping, tripping and stumbling without subsequent striking against object, initial encounter; D63.8 Anemia in other chronic diseases classified elsewhere; B91 Sequelae of poliomyelitis; F17.200 Nicotine dependence, unspecified, uncomplicated; R53.1 Weakness; E55.9 Vitamin D deficiency, unspecified; E78.5 Hyperlipidemia, unspecified; M85.80 Other specified disorders of bone density and structure, unspecified site
CPT/HCPCS: 36415; 71010; 73550; 73562; 73590; 73700; 80048; 80053; 81001; 83605; 83735; 84100; 85025; 85610; 85651; 85730; 86140; 87040; 93005; 93971; 96374; 96375; 97110; 97116; 97161; J0692; J1170; J1650; J2270; J2405; J3370; J3411; J3475; J3480; J7030